=== PATIENT | male | born 1935 | race Caucasian/White ===

== ENCOUNTER 2017-10-12 08:19 | Inpatient (IN) | payer MEDICARE, BC ==
[2017-10-12] MEDS ORDERED: Nitroglycerin 0.4 MG Tab.SL SL PRN (13:24)
[2017-10-12] MEDS: Methylcellulose Powder 479 GM Jar PO SCH ×2 (15:21→20:56)
[2017-10-12] MEDS: Omeprazole 20 MG Cap.CR PO SCH (17:47)
--- NOTE | 2017-10-12 20:09 | HP ---
CHIEF COMPLAINT: The patient is status post left total hip arthroplasty with [id number] on October 09, 2017 requiring admission to swing bed for continued physical therapy and occupational therapy. HISTORY OF PRESENTING ILLNESS: Mr. Refugio Skinner is an 82-year-old male with medical history significant for hypertension, hyperlipidemia, coronary artery disease, status post pacemaker placed. History of renal mass closely following benign prostatic hypertrophy, has been doctoring for left hip arthritis, and finally underwent left total hip arthroplasty on October 09, 2017 at [facility] in [place]. He had an estimated blood loss of 200 mL during the surgical procedure and I had the procedure under general anesthesia. Postprocedure, the patient remained stable, but the patient had difficulty ambulating requiring more physical therapy, so being transferred to swing bed at [place]. At this time, the patient complains of pain to the surgical site which is the left hip. He grades the pain as 4 to 5/10 in intensity, which gets aggravated on ambulation, relieved with rest and pain medication, nonradiating type of pain, not associated with any nausea or vomiting. Denies any chest pains. No shortness of breath. No abdominal pain at this time. The patient denied any history of chest pains on exertion. No history of dyspnea on exertion. No history of orthopnea or paroxysmal nocturnal dyspnea. The patient denied any history of hematemesis, hematochezia, or melenic stools. Normal bowel and bladder habits otherwise. REVIEW OF SYSTEMS: A complete review of system including skin, ear, nose, and throat, cardiovascular system, respiratory system, gastrointestinal system, genitourinary system, hematology, oncology, neurology, allergy, immunology, constitutional were all way evaluated and were negative except for the above- said notes. PAST MEDICAL HISTORY: Significant for hypertension, hyperlipidemia, coronary artery disease, status post pacemaker placed, history of benign prostatic hypertrophy, low back pain, osteoarthritis. PAST SURGICAL HISTORY: Significant for recent left total hip arthroplasty, history of shoulder surgery, spinal lumbar laminectomy, appendicectomy, Achilles tendon repair, cystourethroscopy, cholecystectomy, cardiac pacemaker placement. FAMILY HISTORY: Significant for hypertension and diabetes and heart failure in his mother and history of cerebrovascular accident in his maternal grandmother. SOCIAL HISTORY: Patient denies any history of smoking tobacco. No history of alcohol intake. ALLERGIES HISTORY: The patient noted to have allergies to acebutolol, Lanoxin, Nexium, and Lipitor. HOME MEDICATIONS: Include; 1. Metoprolol 100 mg twice a day. 2. Lisinopril 20 mg twice a day. 3. Hydrochlorothiazide 25 mg daily. 4. Cetirizine 5 mg daily. 5. Aspirin 1 tablet twice a day. 6. Proscar 5 mg daily. 7. Celexa 20 mg twice a day. 8. Flomax 0.4 mg twice a day. 9. Crestor 5 mg daily. 10.Omeprazole 20 mg twice a day. 11.Nitrostat 0.4 mg sublingual as needed. 12.Methyl cellulose 1 scoop 3 times a day. PHYSICAL EXAMINATION: Vital Signs: Temperature of 98.4, pulse of 77, blood pressure 139/75, respiratory rate of 20, saturating at 98% on room air. General Appearance: The patient is well oriented to time, place, and person. Follows commands spontaneously. Cardiovascular System: S1, S2 heard with normal intensity. No gallops. Respiratory System: Clear to auscultation bilaterally. No wheeze. No crepitations. Abdomen: Soft. Bowel sounds positive. Nontender. No rigidity. No guarding. No rebound tenderness. Extremities: No edema. Bilateral lower extremities. Neurology: No gross focal neurological deficits. ASSESSMENT: 1. Status post left total hip arthroplasty. 2. Hypertension. 3. Hyperlipidemia. 4. Coronary disease. 5. Status post pacemaker placed. 6. Anemia due to acute blood loss. PLAN: 1. Left hip arthroplasty. The patient will be continued on physical therapy and occupational therapy while in the swing bed. Continue with wound cares. 2. Hypertension. The patient's blood pressure will be closely monitored. Continue with the beta dre. While in the hospital. He is currently on metoprolol, lisinopril, and hydrochlorothiazide. We will continue the same. 3. Hyperlipidemia. The patient is currently on rosuvastatin, continue the same. 4. Anemia due to acute blood loss. The patient's hemoglobin is down to 12.6 from his usual hemoglobin of 14.9, remains stable. No further bleeding identified. This could be acute blood loss due to surgery. He had an estimated blood loss of 200 mL during the surgical process. No indication for transfusion at this time. 5. DVT prophylaxis. We will follow with Orthopedic recommendation for DVT prophylaxis. 6. Code status. The patient wants to be full code. 7. Reviewed the old charts. Reviewed the labs and medications. [facility] /[id number]
[2017-10-12] MEDS: Metoprolol Tartrate 50 MG Tab PO SCH (20:50)
[2017-10-12] MEDS: Tamsulosin 0.4 MG Cap.ER PO SCH (20:51)
[2017-10-12] MEDS: Acetaminophen 325 MG Tab PO PRN (20:51)
[2017-10-12] MEDS: Citalopram 20 MG Tab PO SCH (20:51)
[2017-10-12] MEDS: Lisinopril 20 MG Tab PO SCH (20:51)
[2017-10-12] MEDS: Aspirin 325 MG Tab.EC PO SCH (20:51)
[2017-10-13] MEDS: Acetaminophen 325 MG Tab PO PRN ×2 (05:31→21:18)
[2017-10-13] MEDS: Omeprazole 20 MG Cap.CR PO SCH ×2 (05:31→17:03)
[2017-10-13 07:22] LABS: CHLORIDE,CL 95 mmol/L (101-111); SODIUM,NA 134 mmol/L (135-145)
[2017-10-13] MEDS: Finasteride 5 MG Tab PO SCH (09:30)
[2017-10-13] MEDS: Metoprolol Tartrate 50 MG Tab PO SCH ×2 (09:30→21:20)
[2017-10-13] MEDS: Loratadine 10 MG Tab PO SCH (09:31)
[2017-10-13] MEDS: Lisinopril 20 MG Tab PO SCH ×2 (09:31→21:18)
[2017-10-13] MEDS: Citalopram 20 MG Tab PO SCH ×2 (09:31→21:19)
[2017-10-13] MEDS: Hydrochlorothiazide 25 MG Tab PO SCH (09:31)
[2017-10-13] MEDS: Methylcellulose Powder 479 GM Jar PO SCH ×3 (09:31→21:27)
[2017-10-13] MEDS: Rosuvastatin 10 MG Tab PO SCH (09:31)
[2017-10-13] MEDS: Tamsulosin 0.4 MG Cap.ER PO SCH ×2 (09:31→21:19)
[2017-10-13] MEDS: Aspirin 325 MG Tab.EC PO SCH ×2 (09:31→21:18)
[2017-10-13] MEDS: [UNRECOGNIZED DRUG - OTHER] TOP SCH (09:32)
[2017-10-13] MEDS ORDERED: diphenhydrAMINE 25 MG Tab PO PRN (16:27)
[2017-10-13] MEDS: Potassium Chloride 10 MEQ Tab.ER PO SCH (17:58)
[2017-10-14] MEDS: Acetaminophen 325 MG Tab PO PRN ×2 (03:56→21:51)
[2017-10-14] MEDS: Omeprazole 20 MG Cap.CR PO SCH ×2 (06:29→16:54)
[2017-10-14] MEDS: Citalopram 20 MG Tab PO SCH ×2 (08:51→21:51)
[2017-10-14] MEDS: Hydrochlorothiazide 25 MG Tab PO SCH (08:51)
[2017-10-14] MEDS: Loratadine 10 MG Tab PO SCH (08:51)
[2017-10-14] MEDS: Finasteride 5 MG Tab PO SCH (08:51)
[2017-10-14] MEDS: Aspirin 325 MG Tab.EC PO SCH ×2 (08:51→21:51)
[2017-10-14] MEDS: Metoprolol Tartrate 50 MG Tab PO SCH ×2 (08:51→21:48)
[2017-10-14] MEDS: Rosuvastatin 10 MG Tab PO SCH (08:52)
[2017-10-14] MEDS: Potassium Chloride 10 MEQ Tab.ER PO SCH ×3 (08:52→18:04)
[2017-10-14] MEDS: Methylcellulose Powder 479 GM Jar PO SCH ×3 (08:52→21:59)
[2017-10-14] MEDS: Lisinopril 20 MG Tab PO SCH ×2 (08:52→21:50)
[2017-10-14] MEDS: [UNRECOGNIZED DRUG - OTHER] TOP SCH (08:52)
[2017-10-14] MEDS: Tamsulosin 0.4 MG Cap.ER PO SCH ×2 (08:58→21:51)
[2017-10-15] MEDS: Acetaminophen 325 MG Tab PO PRN ×3 (03:16→22:23)
[2017-10-15] MEDS: Omeprazole 20 MG Cap.CR PO SCH ×2 (06:36→17:08)
[2017-10-15] MEDS: Methylcellulose Powder 479 GM Jar PO SCH ×3 (08:22→21:20)
[2017-10-15] MEDS: Citalopram 20 MG Tab PO SCH ×2 (08:23→21:20)
[2017-10-15] MEDS: Aspirin 325 MG Tab.EC PO SCH ×2 (08:23→21:20)
[2017-10-15] MEDS: [UNRECOGNIZED DRUG - OTHER] TOP SCH (08:23)
[2017-10-15] MEDS: Metoprolol Tartrate 50 MG Tab PO SCH ×2 (08:23→21:19)
[2017-10-15] MEDS: Loratadine 10 MG Tab PO SCH (08:24)
[2017-10-15] MEDS: Potassium Chloride 10 MEQ Tab.ER PO SCH ×2 (08:24→17:08)
[2017-10-15] MEDS: Rosuvastatin 10 MG Tab PO SCH (08:24)
[2017-10-15] MEDS: Finasteride 5 MG Tab PO SCH (08:24)
[2017-10-15] MEDS: Lisinopril 20 MG Tab PO SCH ×2 (08:24→21:19)
[2017-10-15] MEDS: Hydrochlorothiazide 25 MG Tab PO SCH (08:24)
[2017-10-15] MEDS: Tamsulosin 0.4 MG Cap.ER PO SCH ×2 (08:24→21:20)
[2017-10-16] MEDS: Acetaminophen 325 MG Tab PO PRN (02:20)
[2017-10-16] MEDS: Omeprazole 20 MG Cap.CR PO SCH ×2 (05:25→17:29)
[2017-10-16 07:01] LABS: CHLORIDE,CL 97 mmol/L (101-111); SODIUM,NA 134 mmol/L (135-145)
[2017-10-16] MEDS: Potassium Chloride 10 MEQ Tab.ER PO SCH ×2 (09:00→17:29)
[2017-10-16] MEDS: Rosuvastatin 10 MG Tab PO SCH (09:00)
[2017-10-16] MEDS: Finasteride 5 MG Tab PO SCH (09:00)
[2017-10-16] MEDS: Loratadine 10 MG Tab PO SCH (09:00)
[2017-10-16] MEDS: Tamsulosin 0.4 MG Cap.ER PO SCH ×2 (09:00→21:21)
[2017-10-16] MEDS: Citalopram 20 MG Tab PO SCH ×2 (09:00→21:21)
[2017-10-16] MEDS: Aspirin 325 MG Tab.EC PO SCH ×2 (09:00→21:20)
[2017-10-16] MEDS: Hydrochlorothiazide 25 MG Tab PO SCH (09:00)
[2017-10-16] MEDS: Methylcellulose Powder 479 GM Jar PO SCH ×3 (09:02→21:31)
[2017-10-16] MEDS: [UNRECOGNIZED DRUG - OTHER] TOP SCH (09:03)
[2017-10-16] MEDS: Metoprolol Tartrate 50 MG Tab PO SCH ×2 (11:48→21:19)
[2017-10-16] MEDS: Lisinopril 20 MG Tab PO SCH ×2 (11:48→21:20)
[2017-10-17] MEDS: Omeprazole 20 MG Cap.CR PO SCH ×2 (05:52→17:21)
[2017-10-17] MEDS: Loratadine 10 MG Tab PO SCH (08:35)
[2017-10-17] MEDS: Lisinopril 20 MG Tab PO SCH ×2 (08:35→20:43)
[2017-10-17] MEDS: Potassium Chloride 10 MEQ Tab.ER PO SCH ×2 (08:35→17:21)
[2017-10-17] MEDS: Aspirin 325 MG Tab.EC PO SCH ×2 (08:35→20:45)
[2017-10-17] MEDS: Finasteride 5 MG Tab PO SCH (08:35)
[2017-10-17] MEDS: Tamsulosin 0.4 MG Cap.ER PO SCH ×2 (08:35→20:44)
[2017-10-17] MEDS: Metoprolol Tartrate 50 MG Tab PO SCH ×2 (08:36→20:44)
[2017-10-17] MEDS: Methylcellulose Powder 479 GM Jar PO SCH ×3 (08:36→20:49)
[2017-10-17] MEDS: Rosuvastatin 10 MG Tab PO SCH (08:36)
[2017-10-17] MEDS: Hydrochlorothiazide 25 MG Tab PO SCH (08:36)
[2017-10-17] MEDS: Citalopram 20 MG Tab PO SCH ×2 (08:36→20:44)
[2017-10-17] MEDS: [UNRECOGNIZED DRUG - OTHER] TOP SCH (08:41)
--- NOTE | 2017-10-17 12:36 | PCM.PN ---
- General Info Date of Service: 10/17/17 Functional Status: Reports: Pain Controlled, Tolerating Diet - Review of Systems General: Reports: Weakness. Denies: Fever Pulmonary: Denies: Shortness of Breath, Pleuritic Chest Pain Cardiovascular: Denies: Chest Pain Genitourinary: Denies: Dysuria Neurological: Denies: Confusion - Patient Data Vitals - Most Recent: Last Vital Signs Temp 36.3 C 10/17/17 08:24 Pulse 69 10/17/17 08:36 Resp 20 10/17/17 08:24 BP 148/95 H 10/17/17 08:36 Pulse Ox 98 10/17/17 08:24 Weight - Most Recent: 104.598 kg I&O - Last 24 Hours: Intake & Output 10/16/17 10/17/17 10/17/17 22:59 06:59 14:59 Intake Total 815 300 Output Total 350 Balance 465 300 Med Orders - Current: Current Medications Acetaminophen (Tylenol) 650 mg PO Q4H PRN PRN Reason: Pain Last Admin: 10/16/17 02:20 Dose: 650 mg Aspirin (Ecotrin) 325 mg PO BID [facility] Last Admin: 10/17/17 08:35 Dose: 325 mg Citalopram Hydrobromide (Celexa) 20 mg PO BID [facility] Last Admin: 10/17/17 08:36 Dose: 20 mg Diphenhydramine HCl (Benadryl) 25 mg PO BEDTIME PRN PRN Reason: Sedation Last Admin: 10/13/17 21:17 Dose: 25 mg Finasteride (Proscar) 5 mg PO DAILY [facility] Last Admin: 10/17/17 08:35 Dose: 5 mg Hydrochlorothiazide (Hydrochlorothiazide) 25 mg PO DAILY [facility] Last Admin: 10/17/17 08:36 Dose: 25 mg Lisinopril (Prinivil) 20 mg PO BID [facility] Last Admin: 10/17/17 08:35 Dose: 20 mg Loratadine (Claritin) 10 mg PO DAILY [facility] Last Admin: 10/17/17 08:35 Dose: 10 mg Methylcellulose (Citrucel Sf) 0 gm PO TID [facility] Last Admin: 10/17/17 08:36 Dose: 1 scoop Metoprolol Tartrate (Lopressor) 100 mg PO BID [facility] Last Admin: 10/17/17 08:36 Dose: 100 mg Nitroglycerin (Nitrostat) 0.4 mg SL ASDIRECTED PRN PRN Reason: Chest Pain Omeprazole (Omeprazole) 20 mg PO BIDAC [facility] Last Admin: 10/17/17 05:52 Dose: 20 mg Ciclopirox/Ure/Camph /Menth/Euc [ Ciclopirox 8%] Pt' s Own Med 1 each TOP DAILY [facility] Last Admin: 10/17/17 08:41 Dose: 1 each Potassium Chloride (Klor-Con 10) 20 meq PO BIDMEALS [facility] Last Admin: 10/17/17 08:35 Dose: 20 meq Rosuvastatin Calcium (Crestor) 5 mg PO DAILY [facility] Last Admin: 10/17/17 08:36 Dose: 5 mg Tamsulosin HCl (Flomax) 0.4 mg PO BID [facility] Last Admin: 10/17/17 08:35 Dose: 0.4 mg Discontinued Medications Potassium Chloride (Klor-Con 10) 10 meq PO BIDMEALS [facility] Last Admin: 10/15/17 08:24 Dose: 10 meq - Exam General: Alert, Oriented Neck: Supple Lungs: Clear to Auscultation, Normal Respiratory Effort Cardiovascular: Regular Rate, Regular Rhythm GI/Abdominal Exam: Normal Bowel Sounds, Soft, Non-Tender Extremities: No Pedal Edema Skin: Warm, Dry Psy/Mental Status: Alert, Normal Affect, Normal Mood - Problem List Review Problem List Initiated/Reviewed/Updated: Yes - Plan Plan:: The patient is an 82-year-old gentleman with a history of hypertension, dyslipidemia, coronary artery disease, renal mass, prostate hypertrophy. He was at [facility] where underwent left total hip arthroplasty on September for severe arthritis. The patient was admitted to [facility] for further physical and occupational therapy. #1 left hip arthroplasty He is feeling well. Working with physical and occupational therapy #2 hypertension The patient is on metoprolol, lisinopril, hydrochlorothiazide. The blood pressure was initially in the lower side but today elevated. For now, I will not change the regimen but monitor a little longer. #3 Dyslipidemia Continue statin #4 acute blood loss anemia Well monitor periodically #5 DVT prophylaxis With aspirin per ortho surgery
[2017-10-17] MEDS: Acetaminophen 325 MG Tab PO PRN (23:33)
[2017-10-18] MEDS: Omeprazole 20 MG Cap.CR PO SCH ×2 (06:13→17:47)
[2017-10-18] MEDS: Potassium Chloride 10 MEQ Tab.ER PO SCH ×2 (08:22→17:47)
[2017-10-18] MEDS: Citalopram 20 MG Tab PO SCH ×2 (08:22→20:44)
[2017-10-18] MEDS: Methylcellulose Powder 479 GM Jar PO SCH ×3 (08:24→20:46)
[2017-10-18] MEDS: Rosuvastatin 10 MG Tab PO SCH (08:24)
[2017-10-18] MEDS: Loratadine 10 MG Tab PO SCH (08:24)
[2017-10-18] MEDS: Metoprolol Tartrate 50 MG Tab PO SCH ×2 (08:25→20:44)
[2017-10-18] MEDS: Hydrochlorothiazide 25 MG Tab PO SCH (08:25)
[2017-10-18] MEDS: Aspirin 325 MG Tab.EC PO SCH ×2 (08:25→20:44)
[2017-10-18] MEDS: Tamsulosin 0.4 MG Cap.ER PO SCH ×2 (08:25→20:44)
[2017-10-18] MEDS: Finasteride 5 MG Tab PO SCH (08:26)
[2017-10-18] MEDS: Lisinopril 20 MG Tab PO SCH ×2 (08:26→20:45)
[2017-10-18] MEDS: Acetaminophen 325 MG Tab PO PRN ×2 (08:27→20:45)
[2017-10-18] MEDS: [UNRECOGNIZED DRUG - OTHER] TOP SCH (15:53)
[2017-10-19] MEDS: Omeprazole 20 MG Cap.CR PO SCH ×2 (06:16→18:13)
[2017-10-19] MEDS: Loratadine 10 MG Tab PO SCH (09:26)
[2017-10-19] MEDS: Methylcellulose Powder 479 GM Jar PO SCH ×3 (09:26→21:24)
[2017-10-19] MEDS: Potassium Chloride 10 MEQ Tab.ER PO SCH ×2 (09:26→18:13)
[2017-10-19] MEDS: Rosuvastatin 10 MG Tab PO SCH (09:26)
[2017-10-19] MEDS: Citalopram 20 MG Tab PO SCH ×2 (09:26→21:23)
[2017-10-19] MEDS: Metoprolol Tartrate 50 MG Tab PO SCH ×2 (09:29→21:23)
[2017-10-19] MEDS: Aspirin 325 MG Tab.EC PO SCH ×2 (09:29→21:24)
[2017-10-19] MEDS: Hydrochlorothiazide 25 MG Tab PO SCH (09:29)
[2017-10-19] MEDS: Tamsulosin 0.4 MG Cap.ER PO SCH ×2 (09:29→21:23)
[2017-10-19] MEDS: Lisinopril 20 MG Tab PO SCH ×2 (09:30→21:23)
[2017-10-19] MEDS: Finasteride 5 MG Tab PO SCH (09:30)
[2017-10-19] MEDS: [UNRECOGNIZED DRUG - OTHER] TOP SCH (09:33)
[2017-10-19] MEDS: Acetaminophen 325 MG Tab PO PRN ×2 (18:30→23:30)
[2017-10-20] MEDS: Omeprazole 20 MG Cap.CR PO SCH (06:03)
[2017-10-20] MEDS: Rosuvastatin 10 MG Tab PO SCH (08:27)
[2017-10-20] MEDS: Lisinopril 20 MG Tab PO SCH (08:27)
[2017-10-20] MEDS: Citalopram 20 MG Tab PO SCH (08:27)
[2017-10-20] MEDS: Loratadine 10 MG Tab PO SCH (08:27)
[2017-10-20] MEDS: Aspirin 325 MG Tab.EC PO SCH (08:27)
[2017-10-20] MEDS: Potassium Chloride 10 MEQ Tab.ER PO SCH (08:28)
[2017-10-20] MEDS: Tamsulosin 0.4 MG Cap.ER PO SCH (08:28)
[2017-10-20] MEDS: Hydrochlorothiazide 25 MG Tab PO SCH (08:28)
[2017-10-20] MEDS: Metoprolol Tartrate 50 MG Tab PO SCH (08:29)
[2017-10-20] MEDS: Finasteride 5 MG Tab PO SCH (08:29)
[2017-10-20] MEDS: Acetaminophen 325 MG Tab PO PRN (08:29)
[2017-10-20] MEDS: Methylcellulose Powder 479 GM Jar PO SCH ×2 (08:31→14:28)
[2017-10-20] MEDS: [UNRECOGNIZED DRUG - OTHER] TOP SCH (08:31)
[2017-10-20 08:55] VITALS: BP 145/66
--- NOTE | 2017-10-20 14:51 | PCM.DCSUM1 ---
Discharge Summary - Hospital Course Free Text/Narrative:: The patient is an 82-year-old gentleman with a history of hypertension, dyslipidemia, coronary artery disease, renal mass, prostate hypertrophy. He was at [facility] where underwent left total hip arthroplasty on September for severe arthritis. The patient was admitted to [facility] bed for further physical and occupational therapy. His stay was uncomplicated and his being discharge home. - Discharge Data Discharge Date: 10/20/17 Discharge Disposition: Home, Self-Care 01 Condition: Good - Discharge Diagnosis/Problem(s) (1) Acute retention of urine SNOMED Code(s): 007675957 ICD Code: R33.8 - OTHER RETENTION OF URINE Status: Acute Current Visit: No (2) Giovanni hematuria SNOMED Code(s): 882046839 ICD Code: R31.0 - GROSS HEMATURIA Status: Acute Current Visit: No (3) Hip pain SNOMED Code(s): 85357641 ICD Code: M25.559 - PAIN IN UNSPECIFIED HIP Status: Acute Current Visit: No (4) Hypokalemia SNOMED Code(s): 60382360 ICD Code: E87.6 - HYPOKALEMIA Status: Acute Current Visit: No (5) Hyponatremia SNOMED Code(s): 49010021 ICD Code: E87.1 - HYPO-OSMOLALITY AND HYPONATREMIA Status: Acute Current Visit: No (6) Rash due to allergy SNOMED Code(s): 08274179 ICD Code: R21 - RASH AND OTHER NONSPECIFIC SKIN ERUPTION Status: Acute Current Visit: No (7) Retention of urine SNOMED Code(s): 091079521 ICD Code: R33.9 - RETENTION OF URINE, UNSPECIFIED Status: Acute Current Visit: No (8) Status post hip surgery SNOMED Code(s): 151606975 ICD Code: Z98.89 - OTHER SPECIFIED POSTPROCEDURAL STATES * DO NOT USE * Status: Acute Current Visit: No (9) Afib, Atrial fibrillation SNOMED Code(s): 72339928 ICD Code: I48.91 - UNSPECIFIED ATRIAL FIBRILLATION Status: Chronic Current Visit: No (10) Coronary arteriosclerosis, CAD SNOMED Code(s): 28002164 ICD Code: I25.10 - ATHSCL HEART DISEASE OF [place] CORONARY ARTERY W/O ANG PCTRS Status: Chronic Current Visit: No (11) HTN, Essential hypertension SNOMED Code(s): 13800894 ICD Code: I10 - ESSENTIAL (PRIMARY) HYPERTENSION Status: Chronic Current Visit: No (12) History of - pacemaker in situ SNOMED Code(s): 366308690 ICD Code: Z95.0 - PRESENCE OF CARDIAC PACEMAKER Status: Chronic Current Visit: No (13) Hyperlipidemia SNOMED Code(s): 17170026 ICD Code: E78.5 - HYPERLIPIDEMIA, UNSPECIFIED Status: Chronic Current Visit: No - Patient Summary/Data Consults: Consultations 10/12/17 14:24 OT Evaluation and Treatment [CONS] Routine PT Evaluation and Treatment [CONS] Routine - Patient Instructions Diet: Heart Healthy Diet Fluid Restriction: 2000 mL Activity: As Tolerated Showering/Bathing: May Shower Wound/Incision Care: Keep Operative Site/Wound Site Clean and Dry Notify Provider of: Fever, Increased Pain, Swelling and Redness, Nausea and/or Vomiting - Discharge Plan Prescriptions/Med Rec: Citalopram [Citalopram HBr] 20 mg PO BID 30 Days #60 tablet Loratadine [Claritin] 10 mg PO DAILY 30 Days #30 tablet Potassium Chloride [Klor-Con 10] 20 meq PO BIDMEALS 30 Days #3060 tab.er Home Medications: Home Meds Methylcellulose [Citrucel SF] 1 scoop PO TID 12/03/13 [History] Nitroglycerin [Nitrostat] 0.4 mg SL ASDIRECTED PRN 12/03/13 [History] Omeprazole 20 mg PO BID 12/03/13 [History] Rosuvastatin [Crestor] 5 mg PO DAILY 12/03/13 [History] Citalopram Hydrobromide [Celexa] 20 mg PO BID 02/20/15 [History] Tamsulosin [Flomax] 0.4 mg PO BID 02/24/15 [History] Aspirin [Ecotrin] 1 tab PO BID 10/13/15 [History] Finasteride [Proscar] 5 mg PO DAILY 10/13/15 [History] Ciclopirox/Ure/Camph/Menth/Euc [Ciclopirox 8% Treatment Kit] 1 applic TP DAILY 10/12/17 [History] Hydrochlorothiazide 25 mg PO DAILY 10/12/17 [History] Lisinopril 20 mg PO BID 10/12/17 [History] Metoprolol Tartrate 100 mg PO BID 10/12/17 [History] Citalopram [Citalopram HBr] 20 mg PO BID 30 Days #60 tablet 10/20/17 [Rx] Loratadine [Claritin] 10 mg PO DAILY 30 Days #30 tablet 10/20/17 [Rx] Potassium Chloride [Klor-Con 10] 20 meq PO BIDMEALS 30 Days #3060 tab.er [Rx] Patient Handouts: Total Hip Replacement, Care After, Hip Rehabilitation After Surgery - Discharge Summary/Plan Comment DC Time >30 min.: Yes - Patient Data Vitals - Most Recent: Last Vital Signs Temp 97.2 F 10/20/17 08:00 Pulse 62 10/20/17 08:29 Resp 16 10/20/17 08:00 BP 123/59 L 10/20/17 08:29 Pulse Ox 96 10/20/17 13:00 Weight - Most Recent: 223 lb 9.6 oz I&O - Last 24 hours: Intake & Output 10/19/17 10/20/17 10/20/17 22:59 06:59 14:59 Intake Total 550 1320 Output Total 300 100 Balance 250 -100 1320 Med Orders - Current: Current Medications Acetaminophen (Tylenol) 650 mg PO Q4H PRN PRN Reason: Pain Last Admin: 10/20/17 08:29 Dose: 650 mg Aspirin (Ecotrin) 325 mg PO BID [facility] Last Admin: 10/20/17 08:27 Dose: 325 mg Citalopram Hydrobromide (Celexa) 20 mg PO BID [facility] Last Admin: 10/20/17 08:27 Dose: 20 mg Diphenhydramine HCl (Benadryl) 25 mg PO BEDTIME PRN PRN Reason: Sedation Last Admin: 10/13/17 21:17 Dose: 25 mg Finasteride (Proscar) 5 mg PO DAILY [facility] Last Admin: 10/20/17 08:29 Dose: 5 mg Hydrochlorothiazide (Hydrochlorothiazide) 25 mg PO DAILY [facility] Last Admin: 10/20/17 08:28 Dose: 25 mg Lisinopril (Prinivil) 20 mg PO BID [facility] Last Admin: 10/20/17 08:27 Dose: 20 mg Loratadine (Claritin) 10 mg PO DAILY [facility] Last Admin: 10/20/17 08:27 Dose: 10 mg Methylcellulose (Citrucel Sf) 0 gm PO TID [facility] Last Admin: 10/20/17 14:28 Dose: 1 scoop Metoprolol Tartrate (Lopressor) 100 mg PO BID [facility] Last Admin: 10/20/17 08:29 Dose: 100 mg Nitroglycerin (Nitrostat) 0.4 mg SL ASDIRECTED PRN PRN Reason: Chest Pain Omeprazole (Omeprazole) 20 mg PO BIDAC [facility] Last Admin: 10/20/17 06:03 Dose: 20 mg Ciclopirox/Ure/Camph /Menth/Euc [ Ciclopirox 8%] Pt' s Own Med 1 each TOP DAILY [facility] Last Admin: 10/20/17 08:31 Dose: 1 each Potassium Chloride (Klor-Con 10) 20 meq PO BIDMEALS [facility] Last Admin: 10/20/17 08:28 Dose: 20 meq Rosuvastatin Calcium (Crestor) 5 mg PO DAILY [facility] Last Admin: 10/20/17 08:27 Dose: 5 mg Tamsulosin HCl (Flomax) 0.4 mg PO BID [facility] Last Admin: 10/20/17 08:28 Dose: 0.4 mg Discontinued Medications Potassium Chloride (Klor-Con 10) 10 meq PO BIDMEALS [facility] Last Admin: 10/15/17 08:24 Dose: 10 meq
== END 2017-10-20 15:30 | disposition home or self-care (01) | DRG 948 ==
LOC: UNDOADMIN 12:18 → DL.MS 12:18
PROVIDERS: ADMIT Internal Medicine; ATTEND Internal Medicine
DX: R53.1 Weakness (principal); E87.1 Hypo-osmolality and hyponatremia; D62 Acute posthemorrhagic anemia; R26.2 Difficulty in walking, not elsewhere classified; I10 Essential (primary) hypertension; E78.5 Hyperlipidemia, unspecified; I25.10 Atherosclerotic heart disease of native coronary artery without angina pectoris; N28.9 Disorder of kidney and ureter, unspecified; N40.1 Benign prostatic hyperplasia with lower urinary tract symptoms; R33.8 Other retention of urine; R31.0 Gross hematuria; E87.6 Hypokalemia; Z96.642 Presence of left artificial hip joint; R21 Rash and other nonspecific skin eruption; I48.91 Unspecified atrial fibrillation; Z95.0 Presence of cardiac pacemaker; Z79.82 Long term (current) use of aspirin; Z79.899 Other long term (current) drug therapy; G89.18 Other acute postprocedural pain; M19.90 Unspecified osteoarthritis, unspecified site; Z90.09 Acquired absence of other part of head and neck; Z88.8 Allergy status to other drugs, medicaments and biological substances
CPT/HCPCS: 36415; 80048; 85027; 97110-GP; 97116-GP; 97162-GP; 97165-GO; 97530-GO; 97535-GO; A9270-GY

== ENCOUNTER 2018-03-08 16:50 | Emergency (ER) | payer MEDICARE, BC ==
--- NOTE | 2018-03-08 17:11 | EDM.PDOC ---
ED HPI GENERAL MEDICAL PROBLEM - General Stated Complaint: MOWING, FELL HIT HEAD ON STEP OF MOWER Time Seen by Provider: 03/08/18 16:53 Source of Information: Reports: Patient History Limitations: Reports: No Limitations - History of Present Illness INITIAL COMMENTS - FREE TEXT/NARRATIVE: This 83 yo male patient reports to the ED with his due to a ground level fall. The patient reports that he tripped while mowing the lawn and his his head. The patient reports that he was lying on the ground outside for 1-2 hours because he had difficulties getting off the ground. The patient reports he has some pain in the right side of his face, left shoulder and left hip. The patient reports that he had no loss of consciousness before, during or after the fall. The patient reports he had his left hip replaced in the past year and has noticed some increased pain in the area. Primary Survey Airway - open (patient verbally communicating well upon arrival) Breathing - without additional effort Circulation - small laceration above right eye, abrasion to right cheek with no profuse bleeding Deformity - no gross deformity Expose - no additional injuries GCS - 15 upon arrival Secondary Survey HEENT Head - normocephalic, small laceration to the right upper eye, abrasion to the right cheek Eyes - PERRLA, movement normal with no signs of entrapment Ears - Normal external examination, canals clear, TM's normal Nose - normal outward appearance, no blood Throat - posterior pharynx normal with no erythema, exudates or transudates, no blood Neck - Normal range of motion, no tenderness to palpation Chest - Lung sounds are clear and equal bilaterally, chest is non-tender Abdomen - Normal bowel sounds, no organomegally, no tenderness Pelvis - Left hip tenderness, pelvis was stable Extremities - Left shoulder tenderness (anterior left shoulder) with no deformity with CMS intact. Other extremities are normal to evaluation with no changes to CMS Provider Trauma Notes Arrival Time: 1652 GCS on Arrival: 15 C-collar present on arrival: No GCS at 1 hour: 15 Off spine board: NA Time primary survey: 1652 Time secondary survey: 1657 Time C-collar cleared: NA By: DS Time removed: NA GCS on discharge: 15 Onset: Today Duration: Hour(s):, Constant Location: Reports: Face (Right upper lateral eyebrow), Upper Extremity, Left, Lower Extremity, Left Quality: Reports: Ache, Dull Severity: Mild Improves with: Reports: None Worsens with: Reports: None Context: Reports: Trauma (Ground level fall) Associated Symptoms: Reports: No Other Symptoms - Related Data Allergies Allergy/AdvReac Type Severity Reaction Status Date / Time acebutolol Allergy Cannot Verified 03/08/18 17:08 Remember atorvastatin calcium Allergy Cannot Verified 03/08/18 17:08 [From Lipitor] Remember Beta-Blockers Allergy Cannot Verified 03/08/18 17:08 (Beta-Adrenergic Bloc Remember calcium Allergy Cannot Verified 03/08/18 17:08 Remember digoxin [From Lanoxin] Allergy Cannot Verified 03/08/18 17:08 Remember esomeprazole Allergy Cannot Verified 03/08/18 17:08 Remember Home Meds: Home Meds Methylcellulose [Citrucel SF] 1 scoop PO TID 12/03/13 [History] Nitroglycerin [Nitrostat] 0.4 mg SL ASDIRECTED PRN 12/03/13 [History] Omeprazole 20 mg PO BID 12/03/13 [History] Rosuvastatin [Crestor] 5 mg PO DAILY 12/03/13 [History] Citalopram Hydrobromide [Celexa] 20 mg PO BID 02/20/15 [History] Tamsulosin [Flomax] 0.4 mg PO BID 02/24/15 [History] Aspirin [Ecotrin] 1 tab PO BID 10/13/15 [History] Finasteride [Proscar] 5 mg PO DAILY 10/13/15 [History] Ciclopirox/Ure/Camph/Menth/Euc [Ciclopirox 8% Treatment Kit] 1 applic TP DAILY 10/12/17 [History] Lisinopril 20 mg PO BID 10/12/17 [History] Metoprolol Tartrate 100 mg PO BID 10/12/17 [History] hydroCHLOROthiazide [Hydrochlorothiazide] 25 mg PO DAILY 10/12/17 [History] Citalopram [Citalopram HBr] 20 mg PO BID 30 Days #60 tablet 10/20/17 [Rx] Loratadine [Claritin] 10 mg PO DAILY 30 Days #30 tablet 10/20/17 [Rx] Potassium Chloride [Klor-Con 10] 20 meq PO BIDMEALS 30 Days #3060 tab.er [Rx] Past Medical History HEENT History: Reports: None Cardiovascular History: Reports: Afib, CAD, High Cholesterol, Hypertension, Pacemaker Other Cardiovascular History: Sick sinus syndrome Respiratory History: Reports: None Gastrointestinal History: Reports: Chronic Constipation, GERD Genitourinary History: Reports: Prostate Disorder Other Genitourinary History: renal mass, R Musculoskeletal History: Reports: Arthritis Other Musculoskeletal History: spinal stenosis Neurological History: Reports: None Psychiatric History: Reports: None Endocrine/Metabolic History: Reports: None Hematologic History: Reports: None Immunologic History: Reports: None Oncologic (Cancer) History: Reports: None Dermatologic History: Reports: None - Infectious Disease History Infectious Disease History: Reports: None - Past Surgical History HEENT Surgical History: Reports: Cataract Surgery, Tonsillectomy Cardiovascular Surgical History: Reports: None Respiratory Surgical History: Reports: None GI Surgical History: Reports: Appendectomy, Cholecystectomy Male Surgical History: Reports: None Endocrine Surgical History: Reports: None Neurological Surgical History: Reports: Vertebroplasty Musculoskeletal Surgical History: Reports: Hip Replacement, Shoulder Surgery, Other (See Below) Other Musculoskeletal Surgeries/Procedures:: right shoulder, bilat hips - left done 10/09/17 Oncologic Surgical History: Reports: None Social & Family History - Family History Family Medical History: Noncontributory - Caffeine Use Caffeine Use: Reports: Tea Review of Systems - Review of Systems Review Of Systems: ROS reveals no pertinent complaints other than HPI. ED EXAM, GENERAL - Physical Exam Exam: See Below Exam Limited By: No Limitations General Appearance: Alert, WD/WN, No Apparent Distress Eye Exam: Bilateral Eye: EOMI, Normal Inspection, PERRL Ears: Normal External Exam, Normal Canal, Hearing Grossly Normal, Normal TMs Nose: Normal Inspection, Normal Mucosa, No Blood Throat/Mouth: Normal Inspection, Normal Lips, Normal Teeth, Normal Gums, Normal Oropharynx, Normal Voice, No Airway Compromise Head: Other (Laceration to the right lateral eyebrow and abrasion to the right cheek) Neck: Normal Inspection, Supple, Non-Tender, Full Range of Motion Respiratory/Chest: No Respiratory Distress, Lungs Clear, Normal Breath Sounds, No Accessory Muscle Use, Chest Non-Tender Cardiovascular: Normal Peripheral Pulses, Regular Rate, Rhythm, No Edema, No Gallop, No JVD, No Murmur, No Rub GI/Abdominal: Normal Bowel Sounds, Soft, Non-Tender, No Organomegaly, No Distention, No Abnormal Bruit, No Mass (Male) Exam: Deferred Rectal (Males) Exam: Deferred Back Exam: Normal Inspection, Full Range of Motion, NT Extremities: Arm Pain (left shoulder pain (anterior) ), Leg Pain (left hip pain (with history of hip replacement)) Neurological: Alert, Oriented, CN II-XII Intact, Normal Cognition, Normal Gait, Normal Reflexes, No Motor/Sensory Deficits Psychiatric: Normal Affect, Normal Mood Skin Exam: Warm, Dry, Wound/Incision (right lateral eyebrow) ED TRAUMA PROCEDURES - Laceration/Wound Repair Right Lateral Face Lac/Wound Length In cm: 1.0 Appearance: Superficial, Linear Distal NVT: Neuro & Vascular Intact Anesthetic Type: Local Local Anesthesia - Lidocaine (Xylocaine): 1% Plain Local Anesthetic Volume: 2cc Skin Prep: Chlorhexidine (Hibiciens) Exploration/Debridement/Repair: Wound Explored, In a Bloodless Field, Explored to Base, No Foreign Material Found Closed With: Sutures Suture Size: other (5-0) Suture Type: Prolene, Interrupted, Simple Drain Placement: No Sterile Dressing Applied: Nurse Tetanus Status Addressed: Yes Complications: No Course - Orders/Labs/Meds Orders: Active Orders 24 hr Category Date Time Status Vaccines to be Administered [RC] PER UNIT ROUTINE Care 03/08/18 17:33 Ordered Cervical Spine wo Cont [CT] Urgent Exams 03/08/18 17:01 Ordered Head wo Cont [CT] Urgent Exams 03/08/18 17:01 Ordered Hip Min 2V or 3V w Pelvis Lt [CR] Stat Exams 03/08/18 17:01 Ordered Max Facial Sinus wo Cont [CT] Urgent Exams 03/08/18 17:01 Ordered Shoulder 1V Lt [CR] Urgent Exams 03/08/18 17:10 Ordered Labs: Laboratory Tests 03/08/18 03/08/18 Range/Units 17:04 17:04 WBC 8.0 (5.0-10.0) 10^3/uL RBC 4.99 (4.6-6.2) 10^6/uL Hgb 13.5 L D (14.0-18.0) g/dL Hct 41.2 (40.0-54.0) % MCV 82.6 (80-100) fL MCH 27.1 (27.0-34.0) pg MCHC 32.8 L (33.0-35.0) g/dL Plt Count 187 (150-450) 10^3/uL Neut % (Auto) 73.0 (42.2-75.2) % Lymph % (Auto) 16.8 L (20.5-50.1) % [place] % (Auto) 8.0 (2-8) % Eos % (Auto) 2.0 (1.0-3.0) % Baso % (Auto) 0.2 (0.0-1.0) % Sodium 134 L (135-145) mmol/L Potassium 3.4 L (3.6-5.0) mmol/L Chloride 99 L (101-111) mmol/L Carbon Dioxide 27.0 (21.0-31.0) mmol/L Anion Gap 11.4 BUN 23 H (7-18) mg/dL Creatinine 1.2 (0.6-1.3) mg/dL Est Cr Clr Drug Dosing 51.79 mL/min Estimated GFR (MDRD) 58 BUN/Creatinine Ratio 19.16 Glucose 149 H (74-105) mg/dL Calcium 8.6 (8.4-10.2) mg/dl Total Bilirubin 0.6 (0.2-1.0) mg/dL AST 31 (10-42) IU/L ALT 24 (10-60) IU/L Alkaline Phosphatase 65 (42-121) IU/L Total Protein 7.4 (6.7-8.2) g/dl Albumin 3.9 (3.2-5.5) g/dl Globulin 3.5 Albumin/Globulin Ratio 1.11 Meds: Medications Discontinued Medications Generic Name Dose Route Start Last Admin Trade Name Freq PRN Reason Stop Dose Admin Bacitracin 1 dose 03/08/18 17:32 03/08/18 17:39 Bacitracin Oint 1 Gm TOP 03/08/18 17:33 1 dose ONETIME ONE Administration Diphtheria/Tetanus/Acell Pertussis 0.5 ml 03/08/18 17:33 03/08/18 17:40 Adacel IM 03/08/18 17:34 0.5 ml .ONCE ONE Administration Lidocaine HCl 30 ml 03/08/18 17:32 03/08/18 17:39 Xylocaine-Mpf 1% INJECT 03/08/18 17:33 30 ml ONETIME ONE Administration Departure - Departure Time of Disposition: 18:12 Disposition: Home, Self-Care 01 Condition: Fair Clinical Impression: Abrasion, cheek without infection Fall Qualifiers: Encounter type: initial encounter Qualified Code(s): W19.XXXA - Unspecified fall, initial encounter Laceration of right eyebrow Qualifiers: Encounter type: initial encounter Qualified Code(s): S01.111A - Laceration without foreign body of right eyelid and periocular area, initial encounter - Discharge Information *PRESCRIPTION DRUG MONITORING PROGRAM REVIEWED*: Not Applicable *COPY OF PRESCRIPTION DRUG MONITORING REPORT IN PATIENT JULIANNA: Not Applicable Instructions: Stitches, [place], or Adhesive Wound Closure, [id number] Forms: ED Department Discharge Care Plan Goals: The patient was advised of the examination, lab, x-ray and CT results during the visit. The patient's wound margins were well approximated during the visit. The patient should have the sutures removed in 5-7 days. If the patient has any additional symptoms or concerns, the patient should follow-up with his primary care facility or return to the emergency department. - My Orders Last 24 Hours: My Active Orders 03/08/18 17:01 Cervical Spine wo Cont [CT] Urgent Head wo Cont [CT] Urgent Hip Min 2V or 3V w Pelvis Lt [CR] Stat Max Facial Sinus wo Cont [CT] Urgent 03/08/18 17:10 Shoulder 1V Lt [CR] Urgent 03/08/18 17:33 Vaccines to be Administered [RC] PER UNIT ROUTINE - Assessment/Plan Last 24 Hours: My Active Orders 03/08/18 17:01 Cervical Spine wo Cont [CT] Urgent Head wo Cont [CT] Urgent Hip Min 2V or 3V w Pelvis Lt [CR] Stat Max Facial Sinus wo Cont [CT] Urgent 03/08/18 17:10 Shoulder 1V Lt [CR] Urgent 03/08/18 17:33 Vaccines to be Administered [RC] PER UNIT ROUTINE
[2018-03-08 17:32] LABS: ANION GAP 11.4
[2018-03-08] MEDS ORDERED: Lidocaine 1% 30 ML SDV INJECT ONE (17:32)
[2018-03-08] MEDS ORDERED: Bacitracin Oint 1 GM U/D Packet TOP ONE (17:32)
[2018-03-08] MEDS ORDERED: Diphtheria,Pertussis(Acell),Tetanus Vaccine 0.5 ML SDV IM ONE (17:33)
== END 2018-03-08 18:30 | disposition home or self-care (01) ==
LOC: DL.ED 16:50
DX: Z88.8 Allergy status to other drugs, medicaments and biological substances (principal); Z79.899 Other long term (current) drug therapy; I48.91 Unspecified atrial fibrillation; I25.10 Atherosclerotic heart disease of native coronary artery without angina pectoris; E78.00 Pure hypercholesterolemia, unspecified; I10 Essential (primary) hypertension; Z95.0 Presence of cardiac pacemaker
CPT/HCPCS: 12001; 12011; 36415; 70450; 70486; 72125; 73020-LT; 80053; 85025; 90715; 99283; 99284

== ENCOUNTER 2020-02-15 15:16 | Emergency (ER) | payer MEDICARE, BC ==
[2020-02-15 15:41] VITALS: BP 135/82; PULSE 90
[2020-02-15 16:13] LABS: ANION GAP 11.7 mEq/L (7-13); CHLORIDE,CL 99 mmol/L (98-107); SODIUM,NA 136 mmol/L (136-145)
[2020-02-15] MEDS ORDERED: Cephalexin 500 MG Cap PO ONE (16:20)
--- NOTE | 2020-02-15 16:23 | EDM.PDOC ---
Scribed by Yuliana Yañez 02/15/20 1625 for Anali Shepherd MD ED HPI GENERAL MEDICAL PROBLEM - General Chief Complaint: General Stated Complaint: FEELS LIKE HE'S BEEN RUN OVER BY A TRUCK Time Seen by Provider: 02/15/20 15:30 Source of Information: Reports: Patient, RN, RN Notes Reviewed History Limitations: Reports: No Limitations - History of Present Illness INITIAL COMMENTS - FREE TEXT/NARRATIVE: Patient presents to ED by POV stating that he feels like he has been hit by a truck that started yesterday. He told his about 1 hour ago. He has never had this before. No cough or chest pain. He is a little short of breath off and on for months. No fever or chills. No bowel or bladder problems. No sore throat or running nose. Onset: Gradual Duration: Getting Worse Location: Reports: Generalized Quality: Reports: Ache Severity: Moderate Improves with: Reports: None Worsens with: Reports: None Associated Symptoms: Reports: No Other Symptoms - Related Data Allergies Allergy/AdvReac Type Severity Reaction Status Date / Time acebutolol Allergy Cannot Verified 03/08/18 17:08 Remember atorvastatin calcium Allergy Cannot Verified 03/08/18 17:08 [From Lipitor] Remember Beta-Blockers Allergy Cannot Verified 03/08/18 17:08 (Beta-Adrenergic Bloc Remember calcium Allergy Cannot Verified 03/08/18 17:08 Remember digoxin [From Lanoxin] Allergy Cannot Verified 03/08/18 17:08 Remember esomeprazole Allergy Cannot Verified 03/08/18 17:08 Remember Home Meds: Home Meds Methylcellulose [Citrucel SF] 1 scoop PO TID 12/03/13 [History] Nitroglycerin [Nitrostat] 0.4 mg SL ASDIRECTED PRN 12/03/13 [History] Omeprazole 20 mg PO BID 12/03/13 [History] Rosuvastatin [Crestor] 5 mg PO DAILY 12/03/13 [History] Tamsulosin [Flomax] 0.4 mg PO BID 02/24/15 [History] Aspirin [Ecotrin] 1 tab PO BID 10/13/15 [History] Finasteride [Proscar] 5 mg PO DAILY 10/13/15 [History] Lisinopril 20 mg PO BID 10/12/17 [History] Metoprolol Tartrate 100 mg PO BID 10/12/17 [History] hydroCHLOROthiazide [Hydrochlorothiazide] 25 mg PO DAILY 10/12/17 [History] Loratadine [Claritin] 10 mg PO DAILY 30 Days #30 tablet 10/20/17 [Rx] Fluticasone Propionate 1 spray CIRILO DAILY 02/15/20 [History] Past Medical History HEENT History: Reports: None Cardiovascular History: Reports: Afib, CAD, High Cholesterol, Hypertension, Pacemaker Other Cardiovascular History: Sick sinus syndrome Respiratory History: Reports: None Gastrointestinal History: Reports: Chronic Constipation, GERD Genitourinary History: Reports: Prostate Disorder Other Genitourinary History: renal mass, R Musculoskeletal History: Reports: Arthritis Other Musculoskeletal History: spinal stenosis Neurological History: Reports: None Psychiatric History: Reports: None Endocrine/Metabolic History: Reports: None Hematologic History: Reports: None Immunologic History: Reports: None Oncologic (Cancer) History: Reports: None Dermatologic History: Reports: None - Infectious Disease History Infectious Disease History: Reports: None - Past Surgical History HEENT Surgical History: Reports: Cataract Surgery, Tonsillectomy Cardiovascular Surgical History: Reports: None Respiratory Surgical History: Reports: None GI Surgical History: Reports: Appendectomy, Cholecystectomy Male Surgical History: Reports: None Endocrine Surgical History: Reports: None Neurological Surgical History: Reports: Vertebroplasty Musculoskeletal Surgical History: Reports: Hip Replacement, Shoulder Surgery, Other (See Below) Other Musculoskeletal Surgeries/Procedures:: right shoulder, bilat hips - left done 10/09/17 Oncologic Surgical History: Reports: None Social & Family History - Family History Family Medical History: Noncontributory - Caffeine Use Caffeine Use: Reports: Tea ED ROS GENERAL - Review of Systems Review Of Systems: Comprehensive ROS is negative, except as noted in HPI. ED EXAM, GENERAL - Physical Exam Exam: See Below Exam Limited By: No Limitations General Appearance: Alert, WD/WN, No Apparent Distress Head: Atraumatic, Normocephalic Neck: Normal Inspection Respiratory/Chest: No Respiratory Distress, Lungs Clear, Normal Breath Sounds, No Accessory Muscle Use, Chest Non-Tender Cardiovascular: Normal Peripheral Pulses, Regular Rate, Rhythm, No Edema, No Gallop, No JVD, No Murmur, No Rub GI/Abdominal: Normal Bowel Sounds, Soft, Non-Tender, No Organomegaly, No Distent ion, No Abnormal Bruit, No Mass Back Exam: Normal Inspection Extremities: Normal Inspection Neurological: Alert, Oriented, CN II-XII Intact, Normal Cognition, Normal Gait, Normal Reflexes, No Motor/Sensory Deficits Psychiatric: Normal Affect, Normal Mood Skin Exam: Warm, Dry, Intact, Normal Color, No Rash Course - Vital Signs Last Recorded V/S: Last Vital Signs Temp 97.8 F 02/15/20 15:30 Pulse 90 02/15/20 15:30 Resp 18 02/15/20 15:30 BP 135/82 02/15/20 15:30 Pulse Ox 96 02/15/20 15:30 - Orders/Labs/Meds Orders: Active Orders 24 hr Category Date Time Status EKG 12 Lead [EKG Documentation Completion] [RC] URGENT Care 02/15/20 15:34 Active CULTURE URINE [RM] Stat Lab 02/15/20 15:51 Received Labs: Laboratory Tests 02/15/20 02/15/20 02/15/20 Range/Units 15:44 15:44 15:51 WBC 8.2 (5.0-10.0) 10^3/uL RBC 5.21 (4.6-6.2) 10^6/uL Hgb 14.4 (14.0-18.0) g/dL Hct 42.5 (40.0-54.0) % MCV 81.6 (80-100) fL MCH 27.6 (27.0-34.0) pg MCHC 33.9 (33.0-35.0) g/dL Plt Count 181 (150-450) 10^3/uL Neut % (Auto) 65.7 (42.2-75.2) % Lymph % (Auto) 21.2 (20.5-50.1) % [place] % (Auto) 9.7 H (2-8) % Eos % (Auto) 3.2 H (1.0-3.0) % Baso % (Auto) 0.2 (0.0-1.0) % Sodium 136 (136-145) mmol/L Potassium 3.7 (3.5-5.1) mmol/L Chloride 99 (98-107) mmol/L Carbon Dioxide 29 (21-32) mmol/L Anion Gap 11.7 (7-13) mEq/L BUN 19 H (7-18) mg/dL Creatinine 1.21 (0.70-1.30) mg/dL Est Cr Clr Drug Dosing 49.52 mL/min Estimated GFR (MDRD) 57 BUN/Creatinine Ratio 15.7 (No establ ref range) Glucose 119 H (74-99) mg/dL Calcium 8.4 L (8.5-10.1) mg/dL Total Bilirubin 0.5 (0.2-1.0) mg/dL AST 24 (15-37) U/L ALT 32 (16-63) U/L Alkaline Phosphatase 80 (46-116) U/L Troponin I < 0.017 (0.000-0.056) ng/mL B-Natriuretic Peptide 188 H (0-100) pg/ml Total Protein 7.6 (6.4-8.2) g/dL Albumin 3.5 (3.4-5.0) g/dL Globulin 4.1 Albumin/Globulin Ratio 0.9 Urine Color Yellow (YELLOW) Urine Appearance Slightly cloudy (CLEAR) Urine pH 7.0 (5.0-9.0) Ur Specific [place] 1.025 (1.005-1.030) Urine Protein Negative (NEGATIVE) Urine Glucose (UA) Negative (NEGATIVE) Urine Ketones Negative (NEGATIVE) Urine Occult Blood Trace-intact H (NEGATIVE) Urine Nitrite Negative (NEGATIVE) Urine Bilirubin Negative (NEGATIVE) Urine Urobilinogen 1.0 (0.2-1.0) mg/dL Ur Leukocyte Esterase Small H (NEGATIVE) Urine RBC 5-10 H /HPF Urine WBC 10-20 H (0-5/HPF) /HPF Ur Epithelial Cells Few (NOT SEEN) /HPF Amorphous Sediment Few (NOT SEEN) /HPF Urine Bacteria Few (0-FEW/HPF) /HPF Urine Mucus Few H (NOT SEEN) /LPF Meds: Medications Discontinued Medications Generic Name Dose Route Start Last Admin Trade Name Freq PRN Reason Stop Dose Admin Cephalexin 500 mg 02/15/20 16:20 Keflex PO 02/15/20 16:21 ONETIME ONE Departure - Departure Time of Disposition: 16:21 Disposition: Home, Self-Care 01 Condition: Fair Clinical Impression: Dehydration UTI (urinary tract infection) Qualifiers: Urinary tract infection type: acute cystitis Hematuria presence: with hematuria Qualified Code(s): N30.01 - Acute cystitis with hematuria - Discharge Information *PRESCRIPTION DRUG MONITORING PROGRAM REVIEWED*: Not Applicable *COPY OF PRESCRIPTION DRUG MONITORING REPORT IN PATIENT JULIANNA: Not Applicable Instructions: Urinary Tract Infection, Adult, [id number], Dehydration, Adult, [id number] Forms: ED Department Discharge Additional Instructions: Follow up with in clinic with your doctor in a week. Drink plenty of water every day. Fill prescription tomorrow. Sepsis Event Note (ED) - Focused Exam Vital Signs: Vital Signs Temp Pulse Resp BP Pulse Ox 02/15/20 15:30 97.8 F 90 18 135/82 96 - My Orders Last 24 Hours: My Active Orders 02/15/20 15:34 EKG 12 Lead [EKG Documentation Completion] [RC] URGENT 02/15/20 15:51 CULTURE URINE [RM] Stat - Assessment/Plan Last 24 Hours: My Active Orders 02/15/20 15:34 EKG 12 Lead [EKG Documentation Completion] [RC] URGENT 02/15/20 15:51 CULTURE URINE [RM] Stat I have read and agree with the documentation that has been completed regarding this visit. By signing this record, I attest that the documentation was completed in my physical presence and is an accurate record of the encounter.
== END 2020-02-15 16:56 | disposition home or self-care (01) ==
LOC: DL.ED 15:16
DX: N30.01 Acute cystitis with hematuria (principal); E86.0 Dehydration; I48.91 Unspecified atrial fibrillation; I25.10 Atherosclerotic heart disease of native coronary artery without angina pectoris; E78.00 Pure hypercholesterolemia, unspecified; I10 Essential (primary) hypertension; M19.90 Unspecified osteoarthritis, unspecified site; K21.9 Gastro-esophageal reflux disease without esophagitis; Z88.8 Allergy status to other drugs, medicaments and biological substances; Z79.899 Other long term (current) drug therapy; Z79.82 Long term (current) use of aspirin
CPT/HCPCS: 36415; 80053; 81001; 83880; 84484; 85025; 87086; 93005; 99284; A9270

== ENCOUNTER 2021-02-09 12:59 | Emergency (ER) | payer MEDICARE, BC ==
[2021-02-09 13:30] VITALS: BP 143/92; PULSE 83
--- NOTE | 2021-02-09 13:38 | CT ---
EXAMINATION: Head wo Cont SEX: Male AGE: 86 years CLINICAL HISTORY: 86-year-old male with altered mentation and confusion over the past 3 days. No trauma. Scan technique: Volume acquisition of data emergency unenhanced CT scan of the head and brain obtained with the patient lying supine on the Siemens multislice scanner [place], [place]. All data archived in the PACS system for storage, reformatting axial/sagittal/coronal planes and study (bone/brain windows). Comparison CT of the head 08 March 2018. Interpretation: 1. Chronic Multi-infarct ischemic lesions identified in the periventricular white matter of both cerebral hemispheres. (Unchanged since February 2018 exam) Atrophy consistent with age. Physiologic midline pineal calcification (no shifts). 2. Uniformly thick bony calvarium. No sign of skull fracture, underlying brain contusion or abnormal extracerebral/intracranial epidural or subdural hematomas. 3. No hydrocephalus. No arachnoid cyst. No new signs of encephalomalacia. 4. No new supratentorial or posterior fossa mass lesion. Cerebellum and brainstem unremarkable. 5. No sign of acute intracerebral, intraventricular or subarachnoid bleed. 6 symmetric clear pneumatization of the paranasal and mastoid sinuses. No soft tissue mass, retention cyst, mucoperiosteal inflammation or air-fluid levels. 6. No foreign bodies. CONCLUSION: Chronic multi-infarct ischemic disease. Atrophy. No new evidence of hydrocephalus, intracranial mass, or bleed.
[2021-02-09 14:02] LABS: ANION GAP 12.9 mEq/L (7-13)
--- NOTE | 2021-02-09 14:33 | EDM.PDOC ---
ED HPI GENERAL MEDICAL PROBLEM - General Stated Complaint: SEVERE LOSS OF MEMEORY / CONFUSION/3 DAYS Time Seen by Provider: 02/09/21 14:00 Source of Information: Reports: Patient, Family () History Limitations: Reports: No Limitations - History of Present Illness INITIAL COMMENTS - FREE TEXT/NARRATIVE: This 86 yo male patient was brought to the ED by his (Lizette). The patient reports he his here because he is "loopy". The patient reports he has been having difficulties recognizing people over the past several days. The patient reports he got up this morning and he was in his home alone. The patient reports he was working on his computer with she came home (pointing at his in the room). The patient was asked who the patient in the room was and he responded she "is his mother." The patient had difficulties remembering his 's name (The patient would state her name was "not Lizette", but may be Gina). The patient's reports the patient has been having memory problems for 5 months, but it has gotten much worse in the past 3 days. The patient's reports their daughter was staying with them, but when they went out to supper, the patient told his daughter to stay in the car, because he doesn't know her. Onset Date: 02/07/21 Duration: Constant Location: Reports: Generalized Quality: Reports: Other Severity: Moderate Improves with: Reports: None Worsens with: Reports: None Context: Reports: Other Associated Symptoms: Reports: No Other Symptoms - Related Data Allergies Allergy/AdvReac Type Severity Reaction Status Date / Time acebutolol Allergy Cannot Verified 03/08/18 17:08 Remember atorvastatin calcium Allergy Cannot Verified 03/08/18 17:08 [From Lipitor] Remember Beta-Blockers Allergy Cannot Verified 03/08/18 17:08 (Beta-Adrenergic Bloc Remember calcium Allergy Cannot Verified 03/08/18 17:08 Remember digoxin [From Lanoxin] Allergy Cannot Verified 03/08/18 17:08 Remember esomeprazole Allergy Cannot Verified 03/08/18 17:08 Remember Home Meds: Home Meds Methylcellulose [Citrucel SF] 1 scoop PO TID 12/03/13 [History] Nitroglycerin [Nitrostat] 0.4 mg SL ASDIRECTED PRN 12/03/13 [History] Omeprazole 20 mg PO BID 12/03/13 [History] Rosuvastatin [Crestor] 5 mg PO DAILY 12/03/13 [History] Tamsulosin [Flomax] 0.4 mg PO BID 02/24/15 [History] Aspirin [Ecotrin] 1 tab PO BID 10/13/15 [History] Finasteride [Proscar] 5 mg PO DAILY 10/13/15 [History] Lisinopril 20 mg PO BID 10/12/17 [History] Metoprolol Tartrate 100 mg PO BID 10/12/17 [History] hydroCHLOROthiazide [Hydrochlorothiazide] 25 mg PO DAILY 10/12/17 [History] Loratadine [Claritin] 10 mg PO DAILY 30 Days #30 tablet 10/20/17 [Rx] Fluticasone Propionate 1 spray CIRILO DAILY 02/15/20 [History] Past Medical History HEENT History: Reports: None Cardiovascular History: Reports: Afib, CAD, High Cholesterol, Hypertension, Pacemaker Other Cardiovascular History: Sick sinus syndrome Respiratory History: Reports: None Gastrointestinal History: Reports: Chronic Constipation, GERD Genitourinary History: Reports: Prostate Disorder Other Genitourinary History: renal mass, R Musculoskeletal History: Reports: Arthritis Other Musculoskeletal History: spinal stenosis Neurological History: Reports: None Psychiatric History: Reports: None Endocrine/Metabolic History: Reports: None Hematologic History: Reports: None Immunologic History: Reports: None Oncologic (Cancer) History: Reports: None Dermatologic History: Reports: None - Infectious Disease History Infectious Disease History: Reports: None - Past Surgical History HEENT Surgical History: Reports: Cataract Surgery, Tonsillectomy Cardiovascular Surgical History: Reports: None Respiratory Surgical History: Reports: None GI Surgical History: Reports: Appendectomy, Cholecystectomy Male Surgical History: Reports: None Endocrine Surgical History: Reports: None Neurological Surgical History: Reports: Vertebroplasty Musculoskeletal Surgical History: Reports: Hip Replacement, Shoulder Surgery, Other (See Below) Other Musculoskeletal Surgeries/Procedures:: right shoulder, bilat hips - left done 10/09/17 Oncologic Surgical History: Reports: None Social & Family History - Family History Family Medical History: No Pertinent Family History - Tobacco Use Tobacco Use Status *Q: Never Tobacco User - Caffeine Use Caffeine Use: Reports: Coffee - Recreational Drug Use Recreational Drug Use: No ED ROS GENERAL - Review of Systems Review Of Systems: Comprehensive ROS is negative, except as noted in HPI. ED EXAM, GENERAL - Physical Exam Exam: See Below Exam Limited By: No Limitations General Appearance: Alert, WD/WN, No Apparent Distress Eye Exam: Bilateral Eye: EOMI, Normal Inspection, PERRL Ears: Normal External Exam, Normal Canal, Hearing Grossly Normal, Normal TMs Nose: Normal Inspection, Normal Mucosa, No Blood Throat/Mouth: Normal Inspection, Normal Lips, Normal Teeth, Normal Gums, Normal Oropharynx, Normal Voice, No Airway Compromise Head: Atraumatic, Normocephalic Neck: Normal Inspection, Supple, Non-Tender, Full Range of Motion Respiratory/Chest: No Respiratory Distress, Lungs Clear, Normal Breath Sounds, No Accessory Muscle Use, Chest Non-Tender Cardiovascular: Normal Peripheral Pulses, Regular Rate, Rhythm, No Edema, No Gallop, No JVD, No Murmur, No Rub GI/Abdominal: Normal Bowel Sounds, Soft, Non-Tender, No Organomegaly, No Distention, No Abnormal Bruit, No Mass (Male) Exam: Deferred Rectal (Males) Exam: Deferred Back Exam: Normal Inspection, Full Range of Motion, NT Extremities: Normal Inspection, Normal Range of Motion, Non-Tender, Normal Capillary Refill, No Pedal Edema Neurological: Alert, Oriented, CN II-XII Intact, Normal Gait, Normal Reflexes, No Motor/Sensory Deficits, Other (The patient was having difficulties recognizing his and kept identifying her as his mother. ) Psychiatric: Normal Affect, Normal Mood Skin Exam: Warm, Dry, Intact, Normal Color, No Rash Lymphatic: No Adenopathy Course - Vital Signs Last Recorded V/S: Last Vital Signs Temp 98 F 02/09/21 13:22 Pulse 83 02/09/21 13:22 Resp 18 02/09/21 13:22 BP 143/92 H 02/09/21 13:22 Pulse Ox 96 02/09/21 13:22 - Orders/Labs/Meds Orders: Active Orders 24 hr Category Date Time Status EKG Documentation Completion [RC] STAT Care 02/09/21 13:16 Ordered CULTURE URINE [RM] Urgent Lab 02/09/21 14:07 Received Labs: Laboratory Tests 02/09/21 02/09/21 02/09/21 Range/Units 13:14 13:33 13:33 WBC 9.1 (5.0-10.0) 10^3/uL RBC 5.08 (4.6-6.2) 10^6/uL Hgb 14.1 (14.0-18.0) g/dL Hct 42.5 (40.0-54.0) % MCV 83.7 (80-100) fL MCH 27.8 (27.0-34.0) pg MCHC 33.2 (33.0-35.0) g/dL Plt Count 200 (150-450) 10^3/uL Neut % (Auto) 67.6 (42.2-75.2) % Lymph % (Auto) 20.2 L (20.5-50.1) % [place] % (Auto) 9.6 H (2-8) % Eos % (Auto) 2.4 (1.0-3.0) % Baso % (Auto) 0.2 (0.0-1.0) % Sodium 139 (136-145) mmol/L Potassium 3.9 (3.5-5.1) mmol/L Chloride 100 (98-107) mmol/L Carbon Dioxide 30 (21-32) mmol/L Anion Gap 12.9 (7-13) mEq/L BUN 17 (7-18) mg/dL Creatinine 1.17 (0.70-1.30) mg/dL Est Cr Clr Drug Dosing 50.27 mL/min Estimated GFR (MDRD) 59 BUN/Creatinine Ratio 14.5 (No establ ref range) Glucose 134 H (70-99) mg/dL POC Glucose 137 H (70-99) mg/dL Calcium 8.6 (8.5-10.1) mg/dL Total Bilirubin 0.3 (0.2-1.0) mg/dL AST 17 (15-37) U/L ALT 25 (16-63) U/L Alkaline Phosphatase 70 (46-116) U/L Troponin I High Sens 11 (<=76) pg/mL Total Protein 7.3 (6.4-8.2) g/dL Albumin 3.4 (3.4-5.0) g/dL Globulin 3.9 Albumin/Globulin Ratio 0.9 Urine Color (YELLOW) Urine Appearance (CLEAR) Urine pH (5.0-9.0) Ur Specific [place] (1.005-1.030) Urine Protein (NEGATIVE) Urine Glucose (UA) (NEGATIVE) Urine Ketones (NEGATIVE) Urine Occult Blood (NEGATIVE) Urine Nitrite (NEGATIVE) Urine Bilirubin (NEGATIVE) Urine Urobilinogen (0.2-1.0) mg/dL Ur Leukocyte Esterase (NEGATIVE) Urine RBC /HPF Urine WBC (0-5/HPF) /HPF Ur Epithelial Cells (NOT SEEN) /HPF Urine Bacteria (0-FEW/HPF) /HPF Urine Mucus (NOT SEEN) /LPF 02/09/21 Range/Units 14:07 WBC (5.0-10.0) 10^3/uL RBC (4.6-6.2) 10^6/uL Hgb (14.0-18.0) g/dL Hct (40.0-54.0) % MCV (80-100) fL MCH (27.0-34.0) pg MCHC (33.0-35.0) g/dL Plt Count (150-450) 10^3/uL Neut % (Auto) (42.2-75.2) % Lymph % (Auto) (20.5-50.1) % [place] % (Auto) (2-8) % Eos % (Auto) (1.0-3.0) % Baso % (Auto) (0.0-1.0) % Sodium (136-145) mmol/L Potassium (3.5-5.1) mmol/L Chloride (98-107) mmol/L Carbon Dioxide (21-32) mmol/L Anion Gap (7-13) mEq/L BUN (7-18) mg/dL Creatinine (0.70-1.30) mg/dL Est Cr Clr Drug Dosing mL/min Estimated GFR (MDRD) BUN/Creatinine Ratio (No establ ref range) Glucose (70-99) mg/dL POC Glucose (70-99) mg/dL Calcium (8.5-10.1) mg/dL Total Bilirubin (0.2-1.0) mg/dL AST (15-37) U/L ALT (16-63) U/L Alkaline Phosphatase (46-116) U/L Troponin I High Sens (<=76) pg/mL Total Protein (6.4-8.2) g/dL Albumin (3.4-5.0) g/dL Globulin Albumin/Globulin Ratio Urine Color Yellow (YELLOW) Urine Appearance Clear (CLEAR) Urine pH 6.5 (5.0-9.0) Ur Specific [place] 1.020 (1.005-1.030) Urine Protein Negative (NEGATIVE) Urine Glucose (UA) Negative (NEGATIVE) Urine Ketones Negative (NEGATIVE) Urine Occult Blood Trace-intact H (NEGATIVE) Urine Nitrite Negative (NEGATIVE) Urine Bilirubin Negative (NEGATIVE) Urine Urobilinogen 0.2 (0.2-1.0) mg/dL Ur Leukocyte Esterase Small H (NEGATIVE) Urine RBC 0-5 /HPF Urine WBC 0-5 (0-5/HPF) /HPF Ur Epithelial Cells Rare (NOT SEEN) /HPF Urine Bacteria Rare (0-FEW/HPF) /HPF Urine Mucus Not seen (NOT SEEN) /LPF Departure - Departure Time of Disposition: 14:46 Disposition: Home, Self-Care 01 Condition: Fair Clinical Impression: Dementia Qualifiers: Dementia type: unspecified type Dementia behavioral disturbance: without behav ioral disturbance Qualified Code(s): F03.90 - Unspecified dementia without behavioral disturbance - Discharge Information *PRESCRIPTION DRUG MONITORING PROGRAM REVIEWED*: Not Applicable *COPY OF PRESCRIPTION DRUG MONITORING REPORT IN PATIENT JULIANNA: Not Applicable Referrals: Kahlil Hair MD [Physician] - Forms: ED Department Discharge Care Plan Goals: The patient and his were advised of the examination, lab and CT results during the visit. The patient's was encouraged to continue to monitor the patient for any additional symptoms or changes. If the patient has any additional symptoms or further concerns, the patient should either return to the emergency department or visit his primary care facility. Sepsis Event Note (ED) - Evaluation Sepsis Screening Result: No Definite Risk - Focused Exam Vital Signs: Vital Signs Temp Pulse Resp BP Pulse Ox 02/09/21 13:22 98 F 83 18 143/92 H 96 - My Orders Last 24 Hours: My Active Orders 02/09/21 13:16 EKG Documentation Completion [RC] STAT 02/09/21 14:07 CULTURE URINE [RM] Urgent - Assessment/Plan Last 24 Hours: My Active Orders 02/09/21 13:16 EKG Documentation Completion [RC] STAT 02/09/21 14:07 CULTURE URINE [RM] Urgent
== END 2021-02-09 14:58 | disposition home or self-care (01) ==
LOC: DL.ED 12:59
DX: F03.90 Unspecified dementia, unspecified severity, without behavioral disturbance, psychotic disturbance, mood disturbance, and anxiety (principal); I48.91 Unspecified atrial fibrillation; I25.10 Atherosclerotic heart disease of native coronary artery without angina pectoris; E78.00 Pure hypercholesterolemia, unspecified; I10 Essential (primary) hypertension; K21.9 Gastro-esophageal reflux disease without esophagitis; M19.90 Unspecified osteoarthritis, unspecified site; Z88.8 Allergy status to other drugs, medicaments and biological substances; Z79.82 Long term (current) use of aspirin; Z79.899 Other long term (current) drug therapy
CPT/HCPCS: 36415; 70450; 80053; 81001; 82947; 84484; 85025; 87086; 93005; 99283; 99285-25

== ENCOUNTER 2022-05-08 18:27 | Inpatient (IN) | payer MEDICARE, BC ==
[2022-05-08 21:30] LABS: ANION GAP 8.7 mEq/L (7-13); CHLORIDE,CL 100 mmol/L (98-107); SODIUM,NA 137 mmol/L (136-145)
[2022-05-08 21:42] LABS: CORONAVIRUS COVID-19 NAA NEGATIVE (NEGATIVE)
[2022-05-08 21:48] LABS: ESTIMATED GFR 61 mL/min (>=60)
[2022-05-08] MEDS ORDERED: Albuterol 0.083% 2.5 MG/3 ML Neb Soln NEB ONE (23:19)
[2022-05-08] MEDS ORDERED: cefTRIAXone 1 GM in Sodium Chloride 0.9% 50 ML IV ONE (23:21)
[2022-05-09] MEDS ORDERED: methylPREDNISolone Sodium Succinate 40 MG/1 ML SDV IVPUSH ONE (03:26)
[2022-05-09] MEDS ORDERED: Albuterol 0.083% 2.5 MG/3 ML Neb Soln NEB ONE (03:36)
[2022-05-09] MEDS ORDERED: Furosemide 40 MG/4 ML VIAL IVPUSH ONE (05:13)
[2022-05-09 06:16] LABS: ANION GAP 11.3 mEq/L (7-13)
[2022-05-09] MEDS: Nystatin Crm 15 GM Tube TOP SCH ×4 (12:20→20:41)
[2022-05-09] MEDS ORDERED: Water For Injection, Sterile 10 ML ONE (21:01)
[2022-05-09] MEDS ORDERED: Magnesium Hydroxide 400 MG/5 ML Susp 30 ML Cup PO PRN (21:20)
[2022-05-09] MEDS ORDERED: Acetaminophen 325 MG Tab PO PRN (21:20)
[2022-05-09] MEDS ORDERED: Ondansetron 4 MG/2 ML SDV IVPUSH PRN (21:20)
[2022-05-09] MEDS ORDERED: Albuterol/Ipratropium 3.0-0.5 MG/3 ML Neb Soln NEB PRN (21:20)
[2022-05-09] MEDS ORDERED: HYDROmorphone 0.5 MG/0.5 ML Syringe IVPUSH PRN (21:20)
[2022-05-09] MEDS ORDERED: Ketorolac 30 MG/ML SDV IVPUSH PRN (21:20)
[2022-05-09] MEDS ORDERED: Sodium Chloride 0.9% 10 ML Syringe FLUSH PRN (21:20)
[2022-05-09] MEDS ORDERED: Polyethylene Glycol 3350 Powder 17 GM Packet PO PRN (21:20)
[2022-05-09] MEDS ORDERED: Nitroglycerin 0.4 MG Tab.SL SL PRN (21:28)
[2022-05-09] MEDS: Ziprasidone Mesylate 20 MG Vial IM PRN (21:30)
[2022-05-10] MEDS: Ziprasidone Mesylate 20 MG Vial IM PRN ×2 (04:37→18:04)
[2022-05-10 07:02] LABS: ANION GAP 14.1 mEq/L (7-13)
[2022-05-10] MEDS ORDERED: Potassium Chloride 10 MEQ Tab.ER PO ONE (07:53)
[2022-05-10] MEDS: Tamsulosin 0.4 MG Cap.ER PO SCH (09:05)
[2022-05-10] MEDS: Donepezil 10 MG Tab PO SCH (09:05)
[2022-05-10] MEDS: Finasteride 5 MG Tab PO SCH (09:05)
[2022-05-10] MEDS: Omeprazole 20 MG Cap.CR PO SCH ×2 (09:06→20:24)
[2022-05-10] MEDS: metFORMIN 500 MG Tab PO SCH (09:06)
[2022-05-10] MEDS: Aspirin 81 MG Tab.EC PO SCH (09:06)
[2022-05-10] MEDS: Rosuvastatin 10 MG Tab PO SCH (09:07)
[2022-05-10] MEDS: Citalopram 20 MG Tab PO SCH ×2 (09:07→20:25)
[2022-05-10] MEDS: Metoprolol Tartrate 50 MG Tab PO SCH ×2 (09:08→20:24)
[2022-05-10] MEDS: Hydrochlorothiazide 25 MG Tab PO SCH (09:09)
[2022-05-10] MEDS: Lisinopril 20 MG Tab PO SCH ×2 (09:09→20:25)
[2022-05-10] MEDS: Fluticasone NASAL Spray 16 GM Bottle NAS SCH (09:10)
[2022-05-10] MEDS: Nystatin Crm 15 GM Tube TOP SCH ×4 (09:11→20:24)
[2022-05-10] MEDS: Sodium Chloride 0.9% 10 ML Syringe FLUSH SCH ×2 (09:12→20:26)
[2022-05-10] MEDS ORDERED: hydrALAZINE 20 MG/ML SDV IVPUSH PRN (14:19)
[2022-05-10] MEDS ORDERED: Water For Injection, Sterile 10 ML ONE (17:57)
[2022-05-11 06:50] LABS: ANION GAP 8.8 mEq/L (7-13)
[2022-05-11] MEDS: Hydrochlorothiazide 25 MG Tab PO SCH (08:16)
[2022-05-11] MEDS: metFORMIN 500 MG Tab PO SCH (08:16)
[2022-05-11] MEDS: Rosuvastatin 10 MG Tab PO SCH (08:17)
[2022-05-11] MEDS: Omeprazole 20 MG Cap.CR PO SCH ×2 (08:19→20:55)
[2022-05-11] MEDS: Citalopram 20 MG Tab PO SCH ×2 (08:19→20:55)
[2022-05-11] MEDS: Aspirin 81 MG Tab.EC PO SCH (08:20)
[2022-05-11] MEDS: Finasteride 5 MG Tab PO SCH (08:20)
[2022-05-11] MEDS: Nystatin Topical Powder 30 GM Bottle TOP SCH ×2 (08:20→20:55)
[2022-05-11] MEDS: Donepezil 10 MG Tab PO SCH (08:20)
[2022-05-11] MEDS: Tamsulosin 0.4 MG Cap.ER PO SCH (08:21)
[2022-05-11] MEDS: Metoprolol Tartrate 50 MG Tab PO SCH ×2 (08:21→20:55)
[2022-05-11] MEDS: Lisinopril 20 MG Tab PO SCH ×2 (08:22→20:56)
[2022-05-11] MEDS: Sodium Chloride 0.9% 10 ML Syringe FLUSH SCH ×2 (08:26→20:59)
[2022-05-11] MEDS: Fluticasone NASAL Spray 16 GM Bottle NAS SCH (09:10)
[2022-05-11] MEDS ORDERED: Water For Injection, Sterile 10 ML ONE (23:03)
[2022-05-11] MEDS: Ziprasidone Mesylate 20 MG Vial IM PRN (23:17)
[2022-05-12 07:30] LABS: ANION GAP 9.4 mEq/L (7-13)
[2022-05-12] MEDS: Omeprazole 20 MG Cap.CR PO SCH (08:35)
[2022-05-12] MEDS: Finasteride 5 MG Tab PO SCH (08:35)
[2022-05-12] MEDS ORDERED: Magnesium Sulfate/Water 2 GM in Premix Bag 1 BAG IV ONE (08:35)
[2022-05-12] MEDS: Rosuvastatin 10 MG Tab PO SCH (08:37)
[2022-05-12] MEDS: metFORMIN 500 MG Tab PO SCH (08:37)
[2022-05-12] MEDS: Aspirin 81 MG Tab.EC PO SCH (08:37)
[2022-05-12] MEDS: Hydrochlorothiazide 25 MG Tab PO SCH (08:37)
[2022-05-12] MEDS: Tamsulosin 0.4 MG Cap.ER PO SCH (08:38)
[2022-05-12] MEDS: Citalopram 20 MG Tab PO SCH (08:38)
[2022-05-12] MEDS: Lisinopril 20 MG Tab PO SCH (08:38)
[2022-05-12] MEDS: Metoprolol Tartrate 50 MG Tab PO SCH (08:39)
[2022-05-12] MEDS: Donepezil 10 MG Tab PO SCH (08:40)
[2022-05-12] MEDS: Nystatin Topical Powder 30 GM Bottle TOP SCH (08:41)
[2022-05-12] MEDS: Fluticasone NASAL Spray 16 GM Bottle NAS SCH (08:41)
[2022-05-12] MEDS: Sodium Chloride 0.9% 10 ML Syringe FLUSH SCH (08:46)
[2022-05-12 13:26] VITALS: BP 131/68; PULSE 71
[2022-05-13] MEDS ORDERED: Potassium Chloride 10 MEQ Tab.ER PO ONE (08:35)
== END 2022-05-12 13:20 | disposition other institution (70) | DRG 206 ==
LOC: DL.ED 18:27 → DL.MS 05-09 14:06
PROVIDERS: ADMIT Internal Medicine; ATTEND Internal Medicine
DX: R09.02 Hypoxemia (principal); I50.32 Chronic diastolic (congestive) heart failure; R53.1 Weakness; F03.90 Unspecified dementia, unspecified severity, without behavioral disturbance, psychotic disturbance, mood disturbance, and anxiety; H91.90 Unspecified hearing loss, unspecified ear; E78.00 Pure hypercholesterolemia, unspecified; E78.5 Hyperlipidemia, unspecified; I25.10 Atherosclerotic heart disease of native coronary artery without angina pectoris; I11.0 Hypertensive heart disease with heart failure; M19.90 Unspecified osteoarthritis, unspecified site; N40.0 Benign prostatic hyperplasia without lower urinary tract symptoms; M48.00 Spinal stenosis, site unspecified; E11.9 Type 2 diabetes mellitus without complications; I48.91 Unspecified atrial fibrillation; Z79.84 Long term (current) use of oral hypoglycemic drugs; I49.5 Sick sinus syndrome; K21.9 Gastro-esophageal reflux disease without esophagitis; Z20.822 Contact with and (suspected) exposure to COVID-19; K59.09 Other constipation; M51.36 Other intervertebral disc degeneration, lumbar region; G89.29 Other chronic pain; M54.9 Dorsalgia, unspecified; Z96.643 Presence of artificial hip joint, bilateral; R41.0 Disorientation, unspecified; N40.1 Benign prostatic hyperplasia with lower urinary tract symptoms; R33.8 Other retention of urine; E87.6 Hypokalemia; E83.42 Hypomagnesemia; E11.65 Type 2 diabetes mellitus with hyperglycemia; D72.829 Elevated white blood cell count, unspecified; Z95.0 Presence of cardiac pacemaker; Z79.82 Long term (current) use of aspirin; Z79.899 Other long term (current) drug therapy; Z88.8 Allergy status to other drugs, medicaments and biological substances
CPT/HCPCS: 0240U; 36415; 51701; 51702; 70450; 71045; 80048; 80053; 81001; 83605; 83735; 83880; 84145; 84484; 85025; 86140; 93005; 94762; 99223; 99232; 99233; 99238; 96365; 96375; 99285-25; A9270-GY; J0696; J1940; J2920; J3475; J3486; J3490; J7613-GY; U0002

== ENCOUNTER 2022-08-01 00:11 | Emergency (ER) | payer MEDICARE, BC ==
[2022-08-01 00:28] VITALS: BP 124/88; PULSE 74
== END 2022-08-01 00:59 | disposition home or self-care (01) ==
LOC: DL.ED 00:11
DX: T83.098A Other mechanical complication of other urinary catheter, initial encounter (principal); I48.91 Unspecified atrial fibrillation; I25.10 Atherosclerotic heart disease of native coronary artery without angina pectoris; E78.00 Pure hypercholesterolemia, unspecified; I10 Essential (primary) hypertension; K21.9 Gastro-esophageal reflux disease without esophagitis; J44.9 Chronic obstructive pulmonary disease, unspecified; Z95.0 Presence of cardiac pacemaker; Z88.8 Allergy status to other drugs, medicaments and biological substances; Z79.82 Long term (current) use of aspirin; Z79.899 Other long term (current) drug therapy
CPT/HCPCS: 51702; 99284

== ENCOUNTER 2022-09-05 14:42 | Inpatient (IN) | payer MEDICARE, BC ==
[2022-09-05] MEDS ORDERED: Lidocaine 2% Jelly 10 ML Urojet MUCMEM ONE (15:14)
[2022-09-05] MEDS ORDERED: Lidocaine 2% Jelly 10 ML Urojet ONE (15:16)
[2022-09-05 15:41] LABS: ANION GAP 18.1 mEq/L (7-13)
[2022-09-05 15:57] LABS: O2 DELIVERY DEVICE NASAL CANNULA
[2022-09-05 15:58] LABS: PTT,PARTIAL THROMBOPLSTIN TIME 24.5 SEC (22.0-34.0)
[2022-09-05] MEDS ORDERED: Furosemide 40 MG/4 ML VIAL IVPUSH ONE (15:58)
[2022-09-05 16:02] LABS: PCO2 ARTERIAL 35 mmHg (35-45); PO2 ARTERIAL 51 mmHg (70-100)
[2022-09-05 16:03] LABS: BASE EXCESS ARTERIAL 2 mmol/L ((-2)-(+3)); BICARBONATE,ARTERIAL 24.7 mmol/L (22-26); O2 SATURATION ARTERIAL 88 % (95-100)
[2022-09-05 16:04] LABS: ALLEN TEST POSITIVE
[2022-09-05] MEDS: Sodium Chloride 0.9% 10 ML Syringe FLUSH PRN ×3 (16:20→23:37)
[2022-09-05] MEDS ORDERED: Piperacillin/Tazobactam 4.5 GM in Sodium Chloride 0.9% 100 ML IV ONE (16:37)
[2022-09-05 17:15] LABS: CORONAVIRUS COVID-19 NAA NEGATIVE (NEGATIVE); RESPIRATORY SYNCYTIAL VIR NAA NEGATIVE (NEGATIVE)
[2022-09-05] MEDS ORDERED: Lactated Ringers 1,500 ML IV ONE (18:28)
[2022-09-05] MEDS ORDERED: Ondansetron 4 MG/2 ML SDV IVPUSH PRN (18:41)
[2022-09-05] MEDS ORDERED: Acetaminophen 650 MG Supp RECTAL PRN (18:41)
[2022-09-05] MEDS ORDERED: Magnesium Hydroxide 400 MG/5 ML Susp 30 ML Cup PO PRN ×2 (18:41→18:47)
[2022-09-05] MEDS ORDERED: Docusate Sodium 100 MG Cap PO PRN (18:41)
[2022-09-05] MEDS ORDERED: Polyethylene Glycol 3350 Powder 17 GM Packet PO PRN (18:41)
[2022-09-05] MEDS ORDERED: Acetaminophen/HYDROcodone 325-5 MG Tab PO PRN (18:41)
[2022-09-05] MEDS ORDERED: Bisacodyl 5 MG Tab PO PRN (18:41)
[2022-09-05] MEDS ORDERED: Acetaminophen 325 MG Tab PO PRN (18:41)
[2022-09-05] MEDS ORDERED: Magnesium Sulfate/Water 2 GM in Premix Bag 1 BAG IV ONE (18:49)
[2022-09-05] MEDS ORDERED: Potassium Chloride 20 MEQ in Premix Bag 1 BAG IV ONE (18:50)
[2022-09-05] MEDS ORDERED: 50% Dextrose in Water 50 ML Syringe IVPUSH PRN (18:56)
[2022-09-05] MEDS ORDERED: Glucagon,Human Recombinant 1 MG Vial IM PRN (18:56)
[2022-09-05] MEDS ORDERED: VANCOMYCIN IV SCH (19:00)
[2022-09-05] MEDS ORDERED: Nitroglycerin 0.4 MG Tab.SL SL SCH (19:00)
[2022-09-05] MEDS ORDERED: SODIUM CHLORIDE 0.9% IV SCH (19:00)
[2022-09-05] MEDS ORDERED: Dextrose 5%-0.9% NaCl 1,000 ML IV SCH (20:00)
[2022-09-05] MEDS ORDERED: Vancomycin 2 GM in Sodium Chloride 0.9% 500 ML IV ONE (20:00)
[2022-09-05] MEDS: Sodium Chloride 0.9% 10 ML Syringe FLUSH SCH (20:54)
[2022-09-05] MEDS: Insulin Lispro 100 Units/ML 3 ML Vial SUBCUT SCH (20:55)
[2022-09-05] MEDS: Saccharomyces Boulardii (Probiotic) 250 MG Cap PO SCH (21:04)
[2022-09-05] MEDS: Melatonin 3 MG Tab PO SCH (21:05)
[2022-09-05] MEDS: Tamsulosin 0.4 MG Cap.ER PO SCH (21:05)
[2022-09-05] MEDS: Acetaminophen 500 MG Tab PO SCH (21:06)
[2022-09-05] MEDS: Citalopram 20 MG Tab PO SCH (21:07)
[2022-09-05] MEDS: Metoprolol Tartrate 50 MG Tab PO SCH (21:07)
[2022-09-05] MEDS: Fluticasone NASAL Spray 16 GM Bottle NASBOTH SCH (21:08)
[2022-09-05] MEDS: HYDROmorphone 0.5 MG/0.5 ML Syringe IVPUSH PRN (21:23)
[2022-09-05] MEDS ORDERED: Hydrocortisone Sodium Succinate 100 MG/2 ML SDV IVPUSH ONE (23:15)
[2022-09-05] MEDS: Piperacillin/Tazobactam 3.375 GM in Sodium Chloride 0.9% 100 ML IV SCH (23:15)
[2022-09-06] MEDS ORDERED: Lactated Ringers 500 ML IV ONE (00:45)
[2022-09-06] MEDS: Insulin Lispro 100 Units/ML 3 ML Vial SUBCUT SCH ×4 (01:18→17:27)
[2022-09-06] MEDS ORDERED: Potassium Chloride 20 MEQ in Premix Bag 1 BAG IV ONE (04:00)
[2022-09-06] MEDS: Piperacillin/Tazobactam 3.375 GM in Sodium Chloride 0.9% 100 ML IV SCH ×4 (04:35→23:54)
[2022-09-06] MEDS: Hydrocortisone Sodium Succinate 100 MG/2 ML SDV IVPUSH SCH ×4 (04:58→23:54)
[2022-09-06 06:41] LABS: ANION GAP 13.6 mEq/L (7-13)
[2022-09-06] MEDS ORDERED: Insulin Lispro 100 Units/ML 3 ML Vial SUBCUT SCH (08:00)
[2022-09-06] MEDS: Potassium Chloride 10 MEQ Tab.ER PO SCH (08:42)
[2022-09-06] MEDS: Tamsulosin 0.4 MG Cap.ER PO SCH (08:43)
[2022-09-06] MEDS: Finasteride 5 MG Tab PO SCH (08:43)
[2022-09-06] MEDS: Rosuvastatin 10 MG Tab PO SCH (08:43)
[2022-09-06] MEDS: Acetaminophen 500 MG Tab PO SCH ×2 (08:46→21:05)
[2022-09-06] MEDS: Omeprazole 20 MG Cap.CR PO SCH (08:46)
[2022-09-06] MEDS: Saccharomyces Boulardii (Probiotic) 250 MG Cap PO SCH ×2 (08:46→21:05)
[2022-09-06] MEDS: Fluticasone NASAL Spray 16 GM Bottle NASBOTH SCH ×2 (08:47→21:05)
[2022-09-06] MEDS: Citalopram 20 MG Tab PO SCH ×2 (08:47→21:05)
[2022-09-06] MEDS: Donepezil 10 MG Tab PO SCH (08:47)
[2022-09-06] MEDS: Sodium Chloride 0.9% 10 ML Syringe FLUSH SCH ×2 (09:02→21:05)
[2022-09-06] MEDS: Albuterol/Ipratropium 3.0-0.5 MG/3 ML Neb Soln NEB PRN (10:02)
[2022-09-06] MEDS: Metoprolol Tartrate 50 MG Tab PO SCH ×2 (10:26→21:05)
[2022-09-06] MEDS ORDERED: Midodrine 2.5 MG Tab PO PRN (10:35)
[2022-09-06] MEDS: Sodium Chloride 0.9% 1,000 ML IV SCH ×2 (14:32→21:30)
[2022-09-06] MEDS: Melatonin 3 MG Tab PO SCH (21:05)
[2022-09-06] MEDS ORDERED: Hydrocortisone Sodium Succinate 100 MG/2 ML SDV IVPUSH SCH (23:15)
[2022-09-07] MEDS: Sodium Chloride 0.9% 10 ML Syringe FLUSH PRN ×3 (05:00→22:47)
[2022-09-07] MEDS: Hydrocortisone Sodium Succinate 100 MG/2 ML SDV IVPUSH SCH ×4 (05:05→22:47)
[2022-09-07] MEDS: Piperacillin/Tazobactam 3.375 GM in Sodium Chloride 0.9% 100 ML IV SCH ×4 (05:05→22:53)
[2022-09-07 07:08] LABS: ANION GAP 14.6 mEq/L (7-13)
[2022-09-07] MEDS: Albuterol/Ipratropium 3.0-0.5 MG/3 ML Neb Soln NEB SCH ×2 (09:14→19:08)
[2022-09-07] MEDS: Potassium Chloride 10 MEQ Tab.ER PO SCH (09:28)
[2022-09-07] MEDS: Rosuvastatin 10 MG Tab PO SCH (09:28)
[2022-09-07] MEDS: Metoprolol Tartrate 50 MG Tab PO SCH ×2 (09:29→20:31)
[2022-09-07] MEDS: Citalopram 20 MG Tab PO SCH ×2 (09:29→20:31)
[2022-09-07] MEDS: Omeprazole 20 MG Cap.CR PO SCH (09:29)
[2022-09-07] MEDS: Saccharomyces Boulardii (Probiotic) 250 MG Cap PO SCH ×2 (09:29→20:31)
[2022-09-07] MEDS: Donepezil 10 MG Tab PO SCH (09:30)
[2022-09-07] MEDS: Acetaminophen 500 MG Tab PO SCH ×2 (09:30→20:31)
[2022-09-07] MEDS: Finasteride 5 MG Tab PO SCH (09:30)
[2022-09-07] MEDS: Tamsulosin 0.4 MG Cap.ER PO SCH (09:31)
[2022-09-07] MEDS: Fluticasone NASAL Spray 16 GM Bottle NASBOTH SCH ×2 (09:31→21:31)
[2022-09-07] MEDS: Insulin Lispro 100 Units/ML 3 ML Vial SUBCUT SCH ×3 (09:32→17:22)
[2022-09-07] MEDS: Sodium Chloride 0.9% 10 ML Syringe FLUSH SCH ×2 (09:36→20:30)
[2022-09-07] MEDS: Melatonin 3 MG Tab PO SCH (20:32)
[2022-09-08] MEDS: guaiFENesin/Dextromethorphan 100-10 MG/5 ML Soln 5 ML Cup PO PRN (00:43)
[2022-09-08] MEDS: Ziprasidone Mesylate 20 MG Vial IM PRN ×2 (01:31→13:03)
[2022-09-08] MEDS: Albuterol/Ipratropium 3.0-0.5 MG/3 ML Neb Soln NEB PRN (01:44)
[2022-09-08] MEDS: Sodium Chloride 0.9% 10 ML Syringe FLUSH PRN ×2 (04:28→22:18)
[2022-09-08] MEDS: Hydrocortisone Sodium Succinate 100 MG/2 ML SDV IVPUSH SCH ×4 (04:29→22:25)
[2022-09-08] MEDS: Piperacillin/Tazobactam 3.375 GM in Sodium Chloride 0.9% 100 ML IV SCH (04:32)
[2022-09-08 07:07] LABS: ANION GAP 12.7 mEq/L (7-13)
[2022-09-08] MEDS: Metoprolol Tartrate 50 MG Tab PO SCH ×2 (08:07→21:32)
[2022-09-08] MEDS: Tamsulosin 0.4 MG Cap.ER PO SCH (08:07)
[2022-09-08] MEDS: Donepezil 10 MG Tab PO SCH (08:08)
[2022-09-08] MEDS: Citalopram 20 MG Tab PO SCH ×2 (08:08→21:32)
[2022-09-08] MEDS: Saccharomyces Boulardii (Probiotic) 250 MG Cap PO SCH ×2 (08:08→21:32)
[2022-09-08] MEDS: Potassium Chloride 10 MEQ Tab.ER PO SCH (08:08)
[2022-09-08] MEDS: Omeprazole 20 MG Cap.CR PO SCH (08:08)
[2022-09-08] MEDS: Finasteride 5 MG Tab PO SCH (08:08)
[2022-09-08] MEDS: Acetaminophen 500 MG Tab PO SCH ×2 (08:08→21:36)
[2022-09-08] MEDS: Rosuvastatin 10 MG Tab PO SCH (08:10)
[2022-09-08] MEDS: Albuterol/Ipratropium 3.0-0.5 MG/3 ML Neb Soln NEB SCH ×2 (08:10→17:06)
[2022-09-08] MEDS: Insulin Lispro 100 Units/ML 3 ML Vial SUBCUT SCH ×3 (08:13→17:05)
[2022-09-08] MEDS: Fluticasone NASAL Spray 16 GM Bottle NASBOTH SCH ×2 (08:13→22:16)
[2022-09-08] MEDS: Sodium Chloride 0.9% 10 ML Syringe FLUSH SCH ×2 (10:45→21:33)
[2022-09-08] MEDS: Cefepime 2 GM Vial IVPUSH SCH ×2 (14:27→22:19)
[2022-09-08] MEDS: Melatonin 3 MG Tab PO SCH (21:32)
[2022-09-08] MEDS: Lisinopril 20 MG Tab PO SCH (21:32)
[2022-09-08] MEDS: hydrALAZINE 20 MG/ML SDV IVPUSH PRN (23:36)
[2022-09-09] MEDS: guaiFENesin/Dextromethorphan 100-10 MG/5 ML Soln 5 ML Cup PO PRN ×2 (01:59→21:12)
[2022-09-09] MEDS: Ziprasidone Mesylate 20 MG Vial IM PRN (02:01)
[2022-09-09] MEDS: Albuterol/Ipratropium 3.0-0.5 MG/3 ML Neb Soln NEB PRN (02:04)
[2022-09-09] MEDS: Sodium Chloride 0.9% 10 ML Syringe FLUSH PRN (05:36)
[2022-09-09] MEDS: Hydrocortisone Sodium Succinate 100 MG/2 ML SDV IVPUSH SCH ×3 (05:36→16:50)
[2022-09-09] MEDS: Cefepime 2 GM Vial IVPUSH SCH ×3 (05:40→22:37)
[2022-09-09 07:17] LABS: ANION GAP 13.9 mEq/L (7-13)
[2022-09-09] MEDS: Insulin Lispro 100 Units/ML 3 ML Vial SUBCUT SCH ×3 (08:15→16:56)
[2022-09-09] MEDS: Aspirin 81 MG Tab.Chew PO SCH (08:16)
[2022-09-09] MEDS: Finasteride 5 MG Tab PO SCH (08:16)
[2022-09-09] MEDS: Lisinopril 20 MG Tab PO SCH ×2 (08:17→21:13)
[2022-09-09] MEDS: Metoprolol Tartrate 50 MG Tab PO SCH ×2 (08:17→21:13)
[2022-09-09] MEDS: Donepezil 10 MG Tab PO SCH (08:17)
[2022-09-09] MEDS: Saccharomyces Boulardii (Probiotic) 250 MG Cap PO SCH ×2 (08:17→21:12)
[2022-09-09] MEDS: Tamsulosin 0.4 MG Cap.ER PO SCH (08:18)
[2022-09-09] MEDS: Acetaminophen 500 MG Tab PO SCH ×2 (08:18→21:13)
[2022-09-09] MEDS: Hydrochlorothiazide 25 MG Tab PO SCH (08:18)
[2022-09-09] MEDS: Rosuvastatin 10 MG Tab PO SCH (08:18)
[2022-09-09] MEDS: Citalopram 20 MG Tab PO SCH ×2 (08:19→21:13)
[2022-09-09] MEDS: Potassium Chloride 10 MEQ Tab.ER PO SCH (08:19)
[2022-09-09] MEDS: Omeprazole 20 MG Cap.CR PO SCH (08:19)
[2022-09-09] MEDS: Sodium Chloride 0.9% 10 ML Syringe FLUSH SCH ×2 (08:19→21:14)
[2022-09-09] MEDS: Fluticasone NASAL Spray 16 GM Bottle NASBOTH SCH ×2 (08:24→22:43)
[2022-09-09] MEDS: Albuterol/Ipratropium 3.0-0.5 MG/3 ML Neb Soln NEB SCH ×2 (09:08→17:09)
[2022-09-09] MEDS: Melatonin 3 MG Tab PO SCH (21:14)
[2022-09-09] MEDS: hydrALAZINE 20 MG/ML SDV IVPUSH PRN (22:34)
[2022-09-10] MEDS: Cefepime 2 GM Vial IVPUSH SCH ×3 (06:37→22:20)
[2022-09-10] MEDS: Albuterol/Ipratropium 3.0-0.5 MG/3 ML Neb Soln NEB SCH ×2 (06:38→17:22)
[2022-09-10 07:12] LABS: ANION GAP 13.4 mEq/L (7-13)
[2022-09-10] MEDS ORDERED: Potassium Chloride 20 MEQ in Premix Bag 1 BAG IV ONE (08:26)
[2022-09-10] MEDS: Insulin Lispro 100 Units/ML 3 ML Vial SUBCUT SCH ×5 (09:03→23:31)
[2022-09-10] MEDS ORDERED: Dextrose 5%-0.9% NaCl 1,000 ML IV SCH (11:45)
[2022-09-10] MEDS: Donepezil 10 MG Tab PO SCH (11:48)
[2022-09-10] MEDS: Citalopram 20 MG Tab PO SCH ×2 (11:48→22:00)
[2022-09-10] MEDS: Aspirin 81 MG Tab.Chew PO SCH (11:48)
[2022-09-10] MEDS: Tamsulosin 0.4 MG Cap.ER PO SCH (11:49)
[2022-09-10] MEDS: Rosuvastatin 10 MG Tab PO SCH (11:49)
[2022-09-10] MEDS: Saccharomyces Boulardii (Probiotic) 250 MG Cap PO SCH ×2 (11:49→22:01)
[2022-09-10] MEDS: Fluticasone NASAL Spray 16 GM Bottle NASBOTH SCH ×2 (11:49→22:33)
[2022-09-10] MEDS: Hydrochlorothiazide 25 MG Tab PO SCH (11:49)
[2022-09-10] MEDS: Potassium Chloride 10 MEQ Tab.ER PO SCH (11:50)
[2022-09-10] MEDS: Sodium Chloride 0.9% 10 ML Syringe FLUSH SCH ×2 (11:51→22:33)
[2022-09-10] MEDS: Acetaminophen 500 MG Tab PO SCH ×2 (11:51→22:01)
[2022-09-10] MEDS: Omeprazole 20 MG Cap.CR PO SCH (11:51)
[2022-09-10] MEDS: Metoprolol Tartrate 50 MG Tab PO SCH ×2 (11:52→22:01)
[2022-09-10] MEDS: Lisinopril 20 MG Tab PO SCH ×2 (11:53→22:01)
[2022-09-10] MEDS: Finasteride 5 MG Tab PO SCH (11:53)
[2022-09-10] MEDS ORDERED: methylPREDNISolone Sodium Succinate 40 MG/1 ML SDV IVPUSH ONE (12:12)
[2022-09-10] MEDS ORDERED: Metoprolol Tartrate 5 MG/5 ML SDV IVPUSH PRN (12:13)
[2022-09-10] MEDS ORDERED: Furosemide 20 MG/2 ML VIAL IVPUSH ONE (12:15)
[2022-09-10] MEDS ORDERED: Ziprasidone Mesylate 20 MG Vial IM PRN ×3 (20:52→21:56)
[2022-09-10] MEDS ORDERED: Ziprasidone Mesylate 20 MG Vial IM ONE (21:49)
[2022-09-10] MEDS ORDERED: diphenhydrAMINE 50 MG/ML SDV IVPUSH ONE (21:51)
[2022-09-10] MEDS: Melatonin 3 MG Tab PO SCH (22:01)
[2022-09-10] MEDS: methylPREDNISolone Sodium Succinate 40 MG/1 ML SDV IVPUSH SCH (22:18)
[2022-09-10] MEDS: hydrALAZINE 20 MG/ML SDV IVPUSH PRN (23:53)
[2022-09-11] MEDS ORDERED: Diltiazem 25 MG/5 ML SDV IVPUSH PRN (01:18)
[2022-09-11] MEDS ORDERED: Furosemide 20 MG/2 ML VIAL IVPUSH ONE (01:25)
[2022-09-11] MEDS: Cefepime 2 GM Vial IVPUSH SCH ×2 (05:45→13:38)
[2022-09-11] MEDS: hydrALAZINE 20 MG/ML SDV IVPUSH PRN (05:45)
[2022-09-11] MEDS: Insulin Lispro 100 Units/ML 3 ML Vial SUBCUT SCH ×2 (05:48→12:03)
[2022-09-11] MEDS ORDERED: cloNIDine 0.1 MG/Day Transdermal Patch TRDERM SCH (06:15)
[2022-09-11] MEDS ORDERED: hydrALAZINE 20 MG/ML SDV IVPUSH PRN (06:17)
[2022-09-11] MEDS ORDERED: Ziprasidone Mesylate 20 MG Vial IM PRN (07:00)
[2022-09-11] MEDS ORDERED: hydrALAZINE 20 MG/ML SDV IVPUSH SCH (08:00)
[2022-09-11] MEDS: Albuterol/Ipratropium 3.0-0.5 MG/3 ML Neb Soln NEB SCH (08:14)
[2022-09-11] MEDS: methylPREDNISolone Sodium Succinate 40 MG/1 ML SDV IVPUSH SCH (08:46)
[2022-09-11] MEDS ORDERED: Furosemide 20 MG/2 ML VIAL IVPUSH SCH (09:00)
[2022-09-11] MEDS ORDERED: Potassium Chloride 20 MEQ in Premix Bag 1 BAG IV SCH (09:00)
[2022-09-11] MEDS: Aspirin 81 MG Tab.Chew PO SCH (10:32)
[2022-09-11] MEDS: Donepezil 10 MG Tab PO SCH (10:32)
[2022-09-11] MEDS: Rosuvastatin 10 MG Tab PO SCH (10:33)
[2022-09-11] MEDS: Citalopram 20 MG Tab PO SCH (10:33)
[2022-09-11] MEDS: Fluticasone NASAL Spray 16 GM Bottle NASBOTH SCH (10:34)
[2022-09-11] MEDS: Tamsulosin 0.4 MG Cap.ER PO SCH (10:34)
[2022-09-11] MEDS: Hydrochlorothiazide 25 MG Tab PO SCH (10:34)
[2022-09-11] MEDS: Saccharomyces Boulardii (Probiotic) 250 MG Cap PO SCH (10:34)
[2022-09-11] MEDS: Metoprolol Tartrate 50 MG Tab PO SCH (10:35)
[2022-09-11] MEDS: Potassium Chloride 10 MEQ Tab.ER PO SCH (10:35)
[2022-09-11] MEDS: Finasteride 5 MG Tab PO SCH (10:36)
[2022-09-11] MEDS: Lisinopril 20 MG Tab PO SCH (10:36)
[2022-09-11] MEDS: Sodium Chloride 0.9% 10 ML Syringe FLUSH SCH (10:36)
[2022-09-11] MEDS: Acetaminophen 500 MG Tab PO SCH (10:36)
[2022-09-11] MEDS: Omeprazole 20 MG Cap.CR PO SCH (10:36)
[2022-09-11] MEDS ORDERED: Morphine 10 MG/0.5 ML Oral Syringe SL PRN (10:39)
[2022-09-11] MEDS ORDERED: Atropine 1% Ophth Soln 5 ML Bottle SL PRN (10:40)
[2022-09-11] MEDS ORDERED: Scopolamine 1.5 MG Transdermal Patch TRDERM PRN (10:41)
[2022-09-11 14:05] VITALS: BP 138/81; PULSE 74
[2022-09-11] MEDS: HYDROmorphone 0.5 MG/0.5 ML Syringe IVPUSH PRN (14:49)
[2022-09-11] MEDS: LORazepam 2 MG/ML SDV IVPUSH PRN ×3 (16:20→23:59)
[2022-09-11] MEDS: Morphine 4 MG/ML Syringe IVPUSH PRN ×2 (20:28→23:59)
[2022-09-11] MEDS ORDERED: [UNRECOGNIZED DRUG - REMARK] TRDERM SCH (21:00)
[2022-09-12] MEDS: LORazepam 2 MG/ML SDV IVPUSH PRN ×4 (05:33→19:52)
[2022-09-12] MEDS: Morphine 4 MG/ML Syringe IVPUSH PRN ×5 (05:33→21:54)
[2022-09-12] MEDS: Sodium Chloride 0.9% 10 ML Syringe FLUSH PRN ×2 (19:52→21:53)
[2022-09-13] MEDS: LORazepam 2 MG/ML SDV IVPUSH PRN ×2 (00:16→09:46)
[2022-09-13] MEDS: Sodium Chloride 0.9% 10 ML Syringe FLUSH PRN ×2 (02:27→06:37)
[2022-09-13] MEDS: Morphine 4 MG/ML Syringe IVPUSH PRN ×2 (02:27→06:37)
== END 2022-09-13 12:05 | disposition swing bed (61) | DRG 698 ==
LOC: DL.ED 14:42 → DL.MS 16:59 → DL.ED 17:05 → DL.MS 09-11 17:09
PROVIDERS: ADMIT Internal Medicine; ATTEND Internal Medicine
DX: T83.511A Infection and inflammatory reaction due to indwelling urethral catheter, initial encounter (principal); A41.52 Sepsis due to Pseudomonas; G93.41 Metabolic encephalopathy; J96.21 Acute and chronic respiratory failure with hypoxia; E87.20 Acidosis, unspecified; I50.22 Chronic systolic (congestive) heart failure; Z66 Do not resuscitate; H91.90 Unspecified hearing loss, unspecified ear; E78.5 Hyperlipidemia, unspecified; I25.10 Atherosclerotic heart disease of native coronary artery without angina pectoris; I11.0 Hypertensive heart disease with heart failure; I48.91 Unspecified atrial fibrillation; I49.5 Sick sinus syndrome; K21.9 Gastro-esophageal reflux disease without esophagitis; K59.09 Other constipation; Z20.822 Contact with and (suspected) exposure to COVID-19; M19.90 Unspecified osteoarthritis, unspecified site; G89.29 Other chronic pain; M54.9 Dorsalgia, unspecified; Z96.649 Presence of unspecified artificial hip joint; F03.90 Unspecified dementia, unspecified severity, without behavioral disturbance, psychotic disturbance, mood disturbance, and anxiety; N40.1 Benign prostatic hyperplasia with lower urinary tract symptoms; N30.91 Cystitis, unspecified with hematuria; E87.6 Hypokalemia; E87.8 Other disorders of electrolyte and fluid balance, not elsewhere classified; E11.65 Type 2 diabetes mellitus with hyperglycemia; E83.42 Hypomagnesemia; Y83.8 Other surgical procedures as the cause of abnormal reaction of the patient, or of later complication, without mention of misadventure at the time of the procedure; Z96.643 Presence of artificial hip joint, bilateral; Z95.0 Presence of cardiac pacemaker; Z88.8 Allergy status to other drugs, medicaments and biological substances; Z79.82 Long term (current) use of aspirin; Z98.890 Other specified postprocedural states; Z79.899 Other long term (current) drug therapy; Z98.49 Cataract extraction status, unspecified eye; Z90.89 Acquired absence of other organs; Z90.49 Acquired absence of other specified parts of digestive tract
CPT/HCPCS: 0241U; 36410; 36415; 36600; 51700; 70450; 71045; 80048; 80053; 80202; 81001; 82533; 82803; 82947; 83605; 83735; 83880; 84145; 84484; 85025; 85610; 85730; 86140; 87040; 87077; 87086; 87088; 87186; 93005; 93010; 93306; 94640; 99232; 99233; 99238; 99285; A9270-GY; J0360; J0692; J1170; J1200; J1720; J1815-GY; J1940; J2060; J2270; J2543; J2920; J3370; J3475; J3480; J3486; J3490; J7030; J7040; J7042; J7050; J7120; J7620-GY

== ENCOUNTER 2022-09-13 08:35 | Inpatient (IN) | payer MEDICARE, BC ==
[2022-09-13] MEDS: Atropine 1% Ophth Soln 5 ML Bottle SL SCH (15:39)
[2022-09-13] MEDS: Morphine 4 MG/ML Syringe IVPUSH PRN (15:41)
[2022-09-13] MEDS: LORazepam 2 MG/ML SDV IVPUSH PRN (18:41)
[2022-09-14] MEDS ORDERED: Water For Injection, Sterile 10 ML ONE ×2 (07:53→12:04)
[2022-09-14] MEDS: LORazepam 2 MG/ML SDV IVPUSH PRN ×4 (08:03→23:47)
[2022-09-14] MEDS: Morphine 4 MG/ML Syringe IVPUSH PRN ×4 (08:22→20:57)
[2022-09-14] MEDS: Atropine 1% Ophth Soln 5 ML Bottle SL SCH ×2 (11:08→11:09)
[2022-09-14] MEDS ORDERED: Atropine 1% Ophth Soln 5 ML Bottle SL PRN (11:38)
== END 2022-09-15 00:10 | disposition expired | DRG 951 ==
LOC: DL.MS 12:05
PROVIDERS: ADMIT Internal Medicine; ATTEND Internal Medicine
DX: Z51.5 Encounter for palliative care (principal); I63.9 Cerebral infarction, unspecified; I50.22 Chronic systolic (congestive) heart failure; J96.11 Chronic respiratory failure with hypoxia; H91.90 Unspecified hearing loss, unspecified ear; E78.5 Hyperlipidemia, unspecified; I25.10 Atherosclerotic heart disease of native coronary artery without angina pectoris; Z66 Do not resuscitate; I48.91 Unspecified atrial fibrillation; K21.9 Gastro-esophageal reflux disease without esophagitis; K59.09 Other constipation; M51.36 Other intervertebral disc degeneration, lumbar region; M54.9 Dorsalgia, unspecified; R35.1 Nocturia; G89.29 Other chronic pain; N40.0 Benign prostatic hyperplasia without lower urinary tract symptoms; Z96.643 Presence of artificial hip joint, bilateral; F03.90 Unspecified dementia, unspecified severity, without behavioral disturbance, psychotic disturbance, mood disturbance, and anxiety; H54.7 Unspecified visual loss; N40.1 Benign prostatic hyperplasia with lower urinary tract symptoms; R33.8 Other retention of urine; E11.65 Type 2 diabetes mellitus with hyperglycemia; I11.0 Hypertensive heart disease with heart failure; E87.6 Hypokalemia; E87.8 Other disorders of electrolyte and fluid balance, not elsewhere classified; E78.00 Pure hypercholesterolemia, unspecified; M19.90 Unspecified osteoarthritis, unspecified site; M48.00 Spinal stenosis, site unspecified; Z95.0 Presence of cardiac pacemaker; Z98.890 Other specified postprocedural states; Z79.82 Long term (current) use of aspirin; Z79.899 Other long term (current) drug therapy; Z88.8 Allergy status to other drugs, medicaments and biological substances; Z79.84 Long term (current) use of oral hypoglycemic drugs; Z90.49 Acquired absence of other specified parts of digestive tract; Z98.49 Cataract extraction status, unspecified eye
CPT/HCPCS: 99306; 99315; A9270-GY; J2060; J2270; J3490